=== PATIENT | female | born 1995 | race Caucasian/White ===

== ENCOUNTER → 2016-10-24 | Outpatient (REF) | payer MEDICAID ==
[~2016-10-24] MED LIST: AMOX125C PO; FLUTISP
== END ==
LOC: M LAB REF 13:15
PROVIDERS: ATTEND Specialist
DX: Z36 Encounter for antenatal screening of mother (principal)

== ENCOUNTER 2016-11-21 03:27 | Inpatient (IN) | payer MEDICAID, OTHER ==
[2016-11-21] VITALS (9 sets, daily range): BP systolic 109–126; BP diastolic 56–86
[~2016-11-21] VITALS: Ht 170.2 cm; Wt 61.0 kg
[2016-11-21] MEDS ORDERED: LR 1,000 ML IV SCH (06:53)
[2016-11-21] MEDS ORDERED: LACTATED RINGER'S 1000 ML IV STA (06:53)
[2016-11-21 07:18] LABS: MEAN CORPUSCULAR HEMOGLOBIN 28.5 pg (27.0-33.0); MEAN CORPUSCULAR HGB CONC 33.4 g/dl (32.0-36.5); MEAN CORPUSCULAR VOLUME 85.4 fl (80.0-96.0); RED CELL DISTRIBUTION WIDTH 14.5 % (11.5-14.5); WHITE BLOOD COUNT 11.9 K/mm3 (4.0-10.0)
[2016-11-21] MEDS ORDERED: OXYTOCIN 30 UNITS IN 0.9% NaCl 500ML IV BAG (J2590) As Ordered ONE (07:39)
[2016-11-21] MEDS ORDERED: OXYTOCIN DRIP 30 UNITS in APPROPRIATE DILUENT 1 EA IV SCH (08:01)
[2016-11-21] MEDS ORDERED: ANUSOL HC CREAM 30GM TOP PRN (08:15)
[2016-11-21] MEDS ORDERED: RHOGAM 300 MCG (1500 IU) INJ (J2790) IM SCH (08:15)
[2016-11-21] MEDS ORDERED: MEASLES,MUMPS,RUBELLA VACCINE INJ (MMR-II) (90707) SC SCH (08:15)
[2016-11-21] MEDS ORDERED: DIBUCAINE 1% OINTMENT 30GM TOP PRN (08:15)
[2016-11-21] MEDS ORDERED: MOM 30ML SUSPENSION UDC PO PRN (08:15)
[2016-11-21] MEDS ORDERED: ACETAMINOPHEN 500 MG TAB PO PRN (08:15)
[2016-11-21] MEDS ORDERED: METHYLERGONOVINE MALEATE 0.2 MG TAB PO PRN (08:15)
[2016-11-21] MEDS ORDERED: DOCUSATE SODIUM 100 MG CAP PO PRN (08:15)
[2016-11-21] MEDS: FERROUS SULFATE 325MG TAB PO SCH (10:42)
[2016-11-21] MEDS: PRENATAL VITAMIN TAB PO SCH (10:42)
--- NOTE | 2016-11-21 11:30 | HPE ---
DATE OF ADMISSION: 11/21/2016 21-year-old, 1, estimated date of delivery 11/16/2016, here at 40 weeks 5 days with reports of contractions all night. Reports bloody show. Denies loss of fluid. Fetus is active. Last normal menstrual period 01/30/2016 for LINDA of 11/05/2016. Sono at 8 weeks changed her date to 11/16/2016. Anatomy scan within normal limits. complicated by tobacco use. NO KNOWN DRUG ALLERGIES. Medical-surgical is noncontributory. Family is noncontributory. Social: Single. Father of the baby and family supportive. Reports tobacco use. Denies alcohol, drugs or abuse. OBJECTIVE: Prepregnancy weight 101, total weight gain 38 pounds. O+, antibody negative, rubella immune. VDRL, hepatitis B, hepatitis C, HIV, gonorrhea, Chlamydia all negative. 1-hour glucose 95. Anemia treated with iron supplement. Group B strep is negative. Vital signs are stable. Moderately uncomfortable. Heart rate is regular. Breathing with contractions. Abdomen is soft, gravid, longitudinal lie. Contractions 3-4 minutes apart times 60 seconds, moderate. heart 130, moderate variability with accelerations. Cervix is 7 cm, 100% effaced, -1 one station. Bulging bag of case. ASSESSMENT: Primipara at term, category 1 tracing, active labor. PLAN: Admit. Patient desires epidural. Anticipate normal spontaneous vaginal .
[2016-11-21] MEDS: IBUPROFEN 800 MG TAB PO PRN (13:02)
--- NOTE | 2016-11-21 18:57 | DN ---
DATE OF DELIVERY: 11/21/2016 Spontaneous rupture of membranes and meconium stained fluid 07:01. Fully dilated 07:29. Viable female delivered right occiput anterior (ASHWIN) at 07:45. Bulb suctioned on perineum. Spontaneous respirations. Transitioned on maternal abdomen. Cord doubly clamped and cut once pulsations ceased. Apgars eight and nine. Placenta Greene, intact with three-vessel cord at 07:52. Fundus firmed with massage and IV Pitocin bolus. Estimated blood loss 100 ml. Perineum intact. Left labial abrasion noted. No repair required. weight pending. Sponge, sharp and instrument count correct. Mom and baby doing well.
[2016-11-22 06:30] VITALS: BP 119/67
[2016-11-22] MEDS: PRENATAL VITAMIN TAB PO SCH (08:39)
[2016-11-22] MEDS: FERROUS SULFATE 325MG TAB PO SCH (08:39)
[2016-11-22] MEDS: IBUPROFEN 800 MG TAB PO PRN ×2 (10:08→17:22)
[2016-11-22 18:00] VITALS: BP 113/71
[2016-11-23 06:26] VITALS: BP 118/60
[2016-11-23] MEDS: FERROUS SULFATE 325MG TAB PO SCH (08:02)
[2016-11-23] MEDS: PRENATAL VITAMIN TAB PO SCH (08:02)
[2016-11-23] MEDS ORDERED: PRENTAB9 PO (14:18)
[2016-11-23] MEDS ORDERED: ACET50TA PO (14:18)
[2016-11-23] MEDS ORDERED: IBUP-1114 PO (14:20)
== END 2016-11-23 16:30 | disposition home or self-care (01) | DRG 560 ==
LOC: M LDO 03:27 → M LDI 06:53 → M OBS 10:55
PROVIDERS: ADMIT Advanced Practice Midwife; ATTEND Advanced Practice Midwife
PROC: 10E0XZZ Delivery of Products of Conception, External Approach (ICD-10-PCS; principal; 2016-11-21)
DX: O48.0 Post-term pregnancy (principal); D64.9 Anemia, unspecified; Z37.0 Single live birth; Z3A.40 40 weeks gestation of pregnancy; F17.200 Nicotine dependence, unspecified, uncomplicated; O99.334 Smoking (tobacco) complicating childbirth; O77.0 Labor and delivery complicated by meconium in amniotic fluid; O99.02 Anemia complicating childbirth

== ENCOUNTER → 2016-12-31 | Outpatient (CLI) | payer OTHER ==
[~2016-12-31] MED LIST changes: +ACET50TA PO; +IBUP-1114 PO; +PRENTAB9 PO
[2016-12-31 21:09] LABS: CONTROL LINE HCG INT CTR LINE PRESENT
== END ==
LOC: M SMT 14:52
PROVIDERS: ATTEND Advanced Practice Midwife
DX: N91.1 Secondary amenorrhea (principal)

== ENCOUNTER → 2017-01-15 | Outpatient (REF) | payer OTHER | LOC: M LAB REF 12:00 | PROVIDERS: ATTEND Advanced Practice Midwife | DX: Z11.3 Encounter for screening for infections with a predominantly sexual mode of transmission (principal) ==

== ENCOUNTER 2017-03-11 20:57 | Emergency (ER) | payer OTHER ==
[~2017-03-11] VITALS: Ht 170.2 cm; Wt 52.6 kg
[2017-03-11 20:58] VITALS: BP 119/71
== END 2017-03-11 23:28 | disposition left against medical advice (07) ==
LOC: M ED 21:48
DX: Z20.2 Contact with and (suspected) exposure to infections with a predominantly sexual mode of transmission (principal); Z53.21 Procedure and treatment not carried out due to patient leaving prior to being seen by health care provider

== ENCOUNTER → 2017-07-01 | Outpatient (CLI) | payer OTHER ==
--- NOTE | 2017-07-02 08:23 | REP ---
Clinical: Clinical: Dyspareunia pelvic pain . Technique: Transabdominal pelvic ultrasound followed by transvaginal examination for better evaluation of the endometrium and adnexa with color Doppler evaluation of the ovaries. Findings: Bladder is unremarkable and measures 7.0 x 5.2 x 3.6 cm . Normal anteverted uterus measures 8.1 x 3.4 x 4.2 cm . The endometrial complex measures 4.7 mm thickness. No discrete uterine or endometrial abnormalities are appreciated. IUD identified in satisfactory position. Bilateral ovaries are normal in appearance and vascularity without evidence for torsion. Right ovary measures 3.2 x 1.7 x 2.2 cm ; R I = 0.61 . Left ovary measures 2.7 x 1.5 x 2.0 cm ; R I = 0.52 . Small amount of free fluid in the pelvis nonspecific. Impression: 1. Normal pelvic ultrasound. IUD in satisfactory position. 2. Normal ovaries without torsion. Signed by Babatunde Burgess MD 07/02/2017 08:14 A
== END ==
LOC: M SMT 13:31
PROVIDERS: ATTEND Advanced Practice Midwife
DX: N94.12 Deep dyspareunia (principal)

== ENCOUNTER 2017-11-20 18:47 | Emergency (ER) | payer OTHER, SELFPAY ==
[2017-11-20 20:55] LABS: INFLUENZA A AMPLIFICATION NEGATIVE (NEGATIVE); INFLUENZA B AMPLIFICATION NEGATIVE (NEGATIVE)
[2017-11-20] MEDS: ONDANSETRON 4 MG ORAL DISINTEGRATING TAB (S0181) PO (21:00)
== END 2017-11-20 21:27 | disposition home or self-care (01) ==
LOC: M ED 18:47
DX: R10.9 Unspecified abdominal pain (principal); R11.2 Nausea with vomiting, unspecified; R19.7 Diarrhea, unspecified
CPT/HCPCS: 87502

== ENCOUNTER → 2018-01-04 | Outpatient (REF) | payer OTHER ==
[2018-01-04 15:21] LABS: CHLAMYDIA DNA AMPLIFICATION NEGATIVE (NEGATIVE); GC DNA AMPLIFICATION NEGATIVE (NEGATIVE)
== END ==
LOC: M LAB REF 12:57
DX: N94.12 Deep dyspareunia (principal)
CPT/HCPCS: 87591

== ENCOUNTER → 2018-03-31 | Outpatient (REF) | payer OTHER ==
[2018-04-03 14:28] LABS: HPV HYBRID CAPTURE II Positive (Negative)
== END ==
LOC: M LAB REF 18:17
DX: Z01.419 Encounter for gynecological examination (general) (routine) without abnormal findings (principal); Z11.51 Encounter for screening for human papillomavirus (HPV); R87.610 Atypical squamous cells of undetermined significance on cytologic smear of cervix (ASC-US)
CPT/HCPCS: 88142

== ENCOUNTER 2018-04-06 13:56 | Emergency (ER) | payer OTHER ==
[2018-04-06 14:56] LABS: BASO % 0.3 % (0.0-1.0); EOS # 0.2 10^3/uL (0.0-0.50); EOS % 3.1 % (0.0-3.0); HEMATOCRIT 37.9 % (36.0-47.0); HEMOGLOBIN 12.4 g/dl (12.0-15.5); LYMPH # 1.6 10^3/uL (1.5-6.5); LYMPH % 27.7 % (24.0-44.0); MEAN CORPUSCULAR HEMOGLOBIN 29.6 pg (27.0-33.0); MEAN CORPUSCULAR HGB CONC 32.7 g/dl (32.0-36.5); MEAN CORPUSCULAR VOLUME 90.5 fl (80.0-96.0); MONO # 0.6 10^3/uL (0.0-0.8); MONO % 10.5 % (0.0-5.0); NEUTROPHILS # 3.4 10^3/uL (1.8-7.7); NEUTROPHILS % 58.4 % (36.0-66.0); PLATELET COUNT, AUTOMATED 200 10^3/uL (150-450); RED BLOOD COUNT 4.19 10^6/uL (4.00-5.40); WHITE BLOOD COUNT 5.8 10^3/uL (4.0-10.0)
[2018-04-06 15:21] LABS: HCG, SERUM QUANTITATIVE 10 MIU/ML
[2018-04-06 15:54] LABS: KETONE, URINE AUTO RFX NEGATIVE (NEGATIVE); MUCUS, URINE RFX SMALL (NEGATIVE); NITRITE, URINE AUTO RFX NEGATIVE (NEGATIVE); RBC, URINE AUTO RFX TNTC /HPF (0-3); SQUAM EPITHELIAL CELL UR AURFX 25 /HPF (0-6)
[2018-04-06 15:55] LABS: LEUKOCYTE ESTERASE UR AUTO RFX 1+ (NEGATIVE); WBC, URINE AUTO RFX 110 /HPF (0-3)
[2018-04-06 17:39] LABS: CHLAMYDIA DNA AMPLIFICATION NEGATIVE (NEGATIVE); GC DNA AMPLIFICATION NEGATIVE (NEGATIVE)
== END 2018-04-06 17:29 | disposition home or self-care (01) ==
LOC: M ED 13:56
DX: O20.0 Threatened abortion (principal); Z87.891 Personal history of nicotine dependence; Z79.3 Long term (current) use of hormonal contraceptives; Z3A.01 Less than 8 weeks gestation of pregnancy
CPT/HCPCS: 76801

== ENCOUNTER → 2018-04-08 | Outpatient (CLI) | payer OTHER ==
[2018-04-08 16:16] LABS: HCG, SERUM QUANTITATIVE 4 MIU/ML
== END ==
LOC: M LAB 14:48
DX: O03.9 Complete or unspecified spontaneous abortion without complication (principal)
CPT/HCPCS: 84702

== ENCOUNTER → 2018-06-14 | Outpatient (REF) | payer OTHER ==
[2018-06-14 12:32] LABS: BASO % 0.6 % (0.0-1.0); EOS # 0.1 10^3/uL (0.0-0.50); EOS % 2.5 % (0.0-3.0); HEMOGLOBIN 12.7 g/dl (12.0-15.5); IMMATURE GRANULOCYTE % 0.2 % (0-3.0); LYMPH # 1.2 10^3/uL (1.5-6.5); LYMPH % 22.2 % (24.0-44.0); MEAN CORPUSCULAR HEMOGLOBIN 29.3 pg (27.0-33.0); MEAN CORPUSCULAR HGB CONC 32.6 g/dl (32.0-36.5); MEAN CORPUSCULAR VOLUME 89.9 fl (80.0-96.0); MONO # 0.5 10^3/uL (0.0-0.8); MONO % 10.2 % (0.0-5.0); NEUTROPHILS # 3.4 10^3/uL (1.8-7.7); NEUTROPHILS % 64.3 % (36.0-66.0); PLATELET COUNT, AUTOMATED 211 10^3/uL (150-450); RED BLOOD COUNT 4.34 10^6/uL (4.00-5.40); RED CELL DISTRIBUTION WIDTH 13.1 % (11.5-14.5); WHITE BLOOD COUNT 5.3 10^3/uL (4.0-10.0)
[2018-06-14 12:52] LABS: TOTAL 25(OH) VITAMIN D 34.9 NG/ML (30.0-100.0)
[2018-06-14 23:51] LABS: ALBUMIN 3.7 GM/DL (3.2-5.2); ALKALINE PHOSPHATASE 80 U/L (45-117); ALT/SGPT 14 U/L (12-78); ANION GAP 8 MEQ/L (8-16); AST/SGOT 13 U/L (7-37); BILIRUBIN,TOTAL 0.3 MG/DL (0.2-1.0); BLOOD UREA NITROGEN 9 MG/DL (7-18); CALCIUM LEVEL 8.6 MG/DL (8.5-10.1); CARBON DIOXIDE LEVEL 25 MEQ/L (21-32); CHLORIDE LEVEL 113 MEQ/L (98-107); CREATININE FOR GFR 0.64 MG/DL (0.55-1.30); GLOMERULAR FILTRATION RATE > 60.0 (>60); GLUCOSE, FASTING 84 MG/DL (70-100); HDL CHOLESTEROL 49 MG/DL (>40); LDL CHOLESTEROL 63 MG/DL (<100); POTASSIUM SERUM 4.6 MEQ/L (3.5-5.1); SODIUM LEVEL 146 MEQ/L (136-145); TOTAL PROTEIN 6.4 GM/DL (6.4-8.2); TRIGLYCERIDES LEVEL 39 MG/DL (<150)
[2018-06-15 00:15] LABS: CHOLESTEROL LEVEL 120 MG/DL (<200); CHOLESTEROL RISK RATIO 2.448 (<5); NON-HDL-C 71 MG/DL
[2018-06-15 00:16] LABS: ALBUMIN/GLOBULIN RATIO 1.37 (1.00-1.93)
[2018-06-16 19:22] LABS: HIV 1&2 SCREEN CENTAUR NEGATIVE (NEGATIVE)
== END ==
LOC: M LAB REF 12:19
DX: Z00.01 Encounter for general adult medical examination with abnormal findings (principal)

== ENCOUNTER 2018-07-05 19:11 | Emergency (ER) | payer OTHER ==
[2018-07-05 21:50] LABS: BASO % 0.3 % (0.0-1.0); EOS # 0.1 10^3/uL (0.0-0.50); EOS % 1.9 % (0.0-3.0); HEMATOCRIT 37.7 % (36.0-47.0); HEMOGLOBIN 12.5 g/dl (12.0-15.5); IMMATURE GRANULOCYTE % 0.2 % (0-3.0); LYMPH % 31.2 % (24.0-44.0); MEAN CORPUSCULAR HEMOGLOBIN 29.2 pg (27.0-33.0); MEAN CORPUSCULAR HGB CONC 33.2 g/dl (32.0-36.5); MEAN CORPUSCULAR VOLUME 88.1 fl (80.0-96.0); MONO # 0.5 10^3/uL (0.0-0.8); MONO % 7.6 % (0.0-5.0); NEUTROPHILS # 3.7 10^3/uL (1.8-7.7); NEUTROPHILS % 58.8 % (36.0-66.0); PLATELET COUNT, AUTOMATED 229 10^3/uL (150-450); RED BLOOD COUNT 4.28 10^6/uL (4.00-5.40); RED CELL DISTRIBUTION WIDTH 13.2 % (11.5-14.5); WHITE BLOOD COUNT 6.3 10^3/uL (4.0-10.0)
[2018-07-05] MEDS: METOCLOPRAMIDE INJ 10MG/2ML VIAL (J2765) IV (22:04)
[2018-07-05] MEDS: diphenhydrAMINE INJ 50MG/ML VIAL (J1200) IV (22:05)
[2018-07-05] MEDS: KETOROLAC 30 MG/ML VIAL (J1885) IV (22:05)
[2018-07-05 22:08] LABS: ANION GAP 3 MEQ/L (8-16); BLOOD UREA NITROGEN 11 MG/DL (7-18); C REACTIVE PROTEIN QUANTITATIV < 0.30 MG/DL (0.00-0.30); CALCIUM LEVEL 8.8 MG/DL (8.5-10.1); CARBON DIOXIDE LEVEL 28 MEQ/L (21-32); CHLORIDE LEVEL 110 MEQ/L (98-107); CREATININE FOR GFR 0.55 MG/DL (0.55-1.30); GLOMERULAR FILTRATION RATE > 60.0 (>60); GLUCOSE, FASTING 90 MG/DL (70-100); POTASSIUM SERUM 3.7 MEQ/L (3.5-5.1); SODIUM LEVEL 141 MEQ/L (136-145)
[2018-07-05 22:12] LABS: ERYTHROCYTE SEDIMENTATION RATE 5 mm/hr (0-20)
== END 2018-07-05 22:54 | disposition home or self-care (01) ==
LOC: M ED 19:11
DX: G43.909 Migraine, unspecified, not intractable, without status migrainosus (principal); R11.0 Nausea; Z87.59 Personal history of other complications of pregnancy, childbirth and the puerperium; N92.6 Irregular menstruation, unspecified
CPT/HCPCS: J1200

== ENCOUNTER → 2018-08-20 | Outpatient (CLI) | payer OTHER ==
[2018-08-20 13:58] LABS: BASO % 0.3 % (0.0-1.0); EOS # 0.1 10^3/uL (0.0-0.50); EOS % 1.1 % (0.0-3.0); HEMATOCRIT 38.1 % (36.0-47.0); HEMOGLOBIN 12.8 g/dl (12.0-15.5); IMMATURE GRANULOCYTE % 0.3 % (0-3.0); LYMPH # 1.8 10^3/uL (1.5-6.5); LYMPH % 24.1 % (24.0-44.0); MEAN CORPUSCULAR HEMOGLOBIN 29.6 pg (27.0-33.0); MEAN CORPUSCULAR HGB CONC 33.6 g/dl (32.0-36.5); MEAN CORPUSCULAR VOLUME 88.2 fl (80.0-96.0); MONO # 0.6 10^3/uL (0.0-0.8); MONO % 7.5 % (0.0-5.0); NEUTROPHILS % 66.7 % (36.0-66.0); PLATELET COUNT, AUTOMATED 242 10^3/uL (150-450); RED BLOOD COUNT 4.32 10^6/uL (4.00-5.40); WHITE BLOOD COUNT 7.5 10^3/uL (4.0-10.0)
[2018-08-20 15:14] LABS: HEPATITIS C VIRUS ABY INDEX 0.1 INDEX (<0.8)
[2018-08-20 15:14] LABS: HBsAg Prenatal NEGATIVE (NEGATIVE); HIV 1&2 SCREEN CENTAUR NEGATIVE (NEGATIVE); RUBELLA IgG QUALITATIVE IMMUNE (IMMUNE)
[2018-08-20 15:31] LABS: CHLAMYDIA DNA AMPLIFICATION NEGATIVE (NEGATIVE); GC DNA AMPLIFICATION NEGATIVE (NEGATIVE)
== END ==
LOC: M LAB 13:03
DX: Z34.81 Encounter for supervision of other normal pregnancy, first trimester (principal); Z3A.08 8 weeks gestation of pregnancy
CPT/HCPCS: 86762

== ENCOUNTER 2018-10-23 14:37 | Emergency (ER) | payer OTHER ==
[~2018-10-23] VITALS: Ht 170.2 cm; Wt 55.9 kg
[~2018-10-23 14:37] MED LIST changes: -ACET50TA PO; +MAPA500T2 PO; +ZOFR4TAB14 PO
[2018-10-23] MEDS ORDERED: BUT/APAP/CAF (14:47)
[2018-10-23] MEDS ORDERED: ACETAMINOPHEN 325 MG TAB PO ONE (16:15)
[2018-10-23] MEDS ORDERED: diphenhydrAMINE INJ 50MG/ML VIAL (J1200) IV ONE (16:15)
[2018-10-23] MEDS ORDERED: METOCLOPRAMIDE INJ 10MG/2ML VIAL (J2765) IV ONE (16:15)
[2018-10-23] MEDS ORDERED: NS 1,000 ML IV ONE (16:15)
[2018-10-23 16:35] LABS: BASO % 0.2 % (0.0-1.0); EOS # 0.1 10^3/uL (0.0-0.50); EOS % 0.6 % (0.0-3.0); HEMOGLOBIN 12.4 g/dl (12.0-15.5); LYMPH # 1.5 10^3/uL (1.5-6.5); LYMPH % 16.2 % (24.0-44.0); MEAN CORPUSCULAR HGB CONC 33.5 g/dl (32.0-36.5); MEAN CORPUSCULAR VOLUME 89.4 fl (80.0-96.0); MONO # 0.6 10^3/uL (0.0-0.8); MONO % 6.1 % (0.0-5.0); NEUTROPHILS # 7.2 10^3/uL (1.8-7.7); NEUTROPHILS % 76.7 % (36.0-66.0); PLATELET COUNT, AUTOMATED 219 10^3/uL (150-450); RED BLOOD COUNT 4.14 10^6/uL (4.00-5.40); WHITE BLOOD COUNT 9.4 10^3/uL (4.0-10.0)
[2018-10-23 16:59] LABS: APPEARANCE, URINE CLEAR (CLEAR); BACTERIA, URINE AUTO NEGATIVE (NEGATIVE); BILIRUBIN, URINE AUTO NEGATIVE (NEGATIVE); BLOOD, URINE BLOOD NEGATIVE (NEGATIVE); COLOR, URINE YELLOW (YELLOW); GLUCOSE, URINE (UA) AUTO NEGATIVE (NEGATIVE); KETONE, URINE AUTO 1+ mg/dL (NEGATIVE); LEUKOCYTE ESTERASE, URINE AUTO NEGATIVE (NEGATIVE); MUCUS, URINE SMALL (NEGATIVE); NITRITE, URINE AUTO NEGATIVE (NEGATIVE); PROTEIN, URINE AUTO NEGATIVE (NEGATIVE); RBC, URINE AUTO 3 /HPF (0-3); SPECIFIC GRAVITY URINE AUTO 1.011 (1.002-1.035); SQUAMOUS EPITHELIAL CELL UR AU 2 /HPF (0-6); UROBILINOGEN, URINE AUTO 0.2 mg/dL (0.0-2.0); WBC, URINE AUTO 2 /HPF (0-3)
[2018-10-23 17:11] LABS: BLOOD UREA NITROGEN 9 MG/DL (7-18); CALCIUM LEVEL 8.2 MG/DL (8.5-10.1); CARBON DIOXIDE LEVEL 24 MEQ/L (21-32); CHLORIDE LEVEL 106 MEQ/L (98-107); CREATININE FOR GFR 0.61 MG/DL (0.55-1.30); GLOMERULAR FILTRATION RATE > 60.0 (>60); GLUCOSE, FASTING 71 MG/DL (70-100); POTASSIUM SERUM 6.7 MEQ/L (3.5-5.1); SODIUM LEVEL 136 MEQ/L (136-145)
[2018-10-23 18:28] VITALS: BP 120/62
[2018-10-23] MEDS ORDERED: ACE65ERTAB PO (18:29)
[2018-10-23] MEDS ORDERED: METO10TA2 PO (18:29)
== END 2018-10-23 18:42 | disposition home or self-care (01) ==
LOC: M ED 14:37
DX: O99.352 Diseases of the nervous system complicating pregnancy, second trimester (principal); R51 Headache; O21.9 Vomiting of pregnancy, unspecified; O99.282 Endocrine, nutritional and metabolic diseases complicating pregnancy, second trimester; E87.5 Hyperkalemia; E83.51 Hypocalcemia; Z3A.18 18 weeks gestation of pregnancy
CPT/HCPCS: 80048; 81001; 85025; 85379; 96374; 96375; 99283; J1200; J2765

== ENCOUNTER → 2018-11-02 | Outpatient (CLI) | payer OTHER ==
[~2018-11-02] MED LIST changes: +ACE65ERTAB PO; +BUT/APAP/CAF; +METO10TA2 PO
--- NOTE | 2018-11-02 12:20 | REP ---
Clinical: Anatomical evaluation. Comparison: None . Findings: Examination demonstrates a single live intrauterine in variable presentation. motion is identified by technologist. Placenta is noted posterior and grade 1 without evidence for placenta previa or abruption. Amniotic fluid volume is normal. Cervix measures 5.2 cm in length and appears closed. No evidence for nuchal cord. Gestational age by LMP 20 weeks 2 days with LINDA 03/20/2019 . Gestational age by current measurements 19 weeks 4 days with LINDA 03/25/2019 . FHR equals 139 beats per minute. BPD 4.4 cm 19 weeks 2 days HC 16.6 cm 19 weeks 2 days AC 14.3 cm 19 weeks 5 days FL 3.2 cm 20 weeks 0 days HL 3.1 cm 20 weeks 2 days HC/AC ratio 1.16 Estimated weight 310 grams ( 28th percentile). Anatomical assessment demonstrates normal structures including cranium, choroid plexus, cavum, cerebellum/posterior fossa, facial profile, lungs, diaphragm, stomach, cord insertion/three-vessel cord, kidneys/bladder, spine, and extremities. Limited evaluation of the nose/lips and heart/ventricular outflow tracts noted. Impression: Single live intrauterine in variable presentation demonstrating appropriate interval growth. Anatomical limitations as described above warrant reevaluation and follow-up. No gross abnormality identified. Electronically Signed by Babatunde Burgess MD 11/02/2018 12:12 P
== END ==
LOC: M RAD 10:38
PROVIDERS: ATTEND Advanced Practice Midwife
DX: O32.8XX0 Maternal care for other malpresentation of fetus, not applicable or unspecified (principal); Z36.89 Encounter for other specified antenatal screening; Z3A.20 20 weeks gestation of pregnancy

== ENCOUNTER → 2018-11-16 | Outpatient (CLI) | payer OTHER ==
--- NOTE | 2018-11-16 12:14 | REP ---
Obstetric ultrasound for follow-up of anatomy: On the prior study dated 11/02/2018 the upper lip and four-chamber view of the heart were not optimally demonstrated. The remainder of the anatomy previously was unremarkable. On the study today there is again a single intrauterine gestation. Fetus is in a breech presentation. There is motion and cardiac activity. The heart rate is 141 beats per minute. The placenta is posterior and fundal without previa or abruptio. The placenta is grade 1 maturity. The amniotic fluid volume subjectively is normal. The cervix measures 3.9 cm length. Gestational age by the ultrasound today is 22 weeks 0 days/LINDA 03/22/2019. Gestational age by the first ultrasound is 21 weeks 4 days/LINDA 03/25/2019. Gestational age by LMP is 22 weeks 2 days/LINDA 03/20/2019. weight is 471 grams (1 pound, 0 ounces). This is the 37th percentile for 22 weeks 2 days. anatomy: The upper lip is adequately demonstrated and unremarkable. The four-chamber view of the heart is adequately demonstrated and unremarkable. The cardiac right and left ventricular outflow tracts are adequately demonstrated and unremarkable and unchanged. The spine is not adequately demonstrated on the study today, however, was adequately demonstrated on the previous study and unremarkable. The remainder of the anatomy is unremarkable today has previously. No anomalies are identified Electronically Signed by Jose Lucas MD 11/16/2018 12:06 P
== END ==
LOC: M RAD 10:32
PROVIDERS: ATTEND Advanced Practice Midwife
DX: Z34.82 Encounter for supervision of other normal pregnancy, second trimester (principal); Z3A.22 22 weeks gestation of pregnancy

== ENCOUNTER → 2018-12-30 | Outpatient (CLI) | payer OTHER ==
[2018-12-30 13:56] LABS: HEMOGLOBIN 10.2 g/dl (12.0-15.5); MEAN CORPUSCULAR HEMOGLOBIN 29.2 pg (27.0-33.0); MEAN CORPUSCULAR HGB CONC 31.9 g/dl (32.0-36.5); MEAN CORPUSCULAR VOLUME 91.7 fl (80.0-96.0); PLATELET COUNT, AUTOMATED 225 10^3/uL (150-450); RED BLOOD COUNT 3.49 10^6/uL (4.00-5.40); WHITE BLOOD COUNT 6.7 10^3/uL (4.0-10.0)
== END ==
LOC: M SMT 09:49
PROVIDERS: ATTEND Advanced Practice Midwife
DX: Z36.89 Encounter for other specified antenatal screening (principal); Z3A.00 Weeks of gestation of pregnancy not specified

== ENCOUNTER → 2019-02-24 | Outpatient (REF) | payer OTHER ==
[~2019-02-24] MED LIST changes: +FLUT1SPR2; -FLUTISP
== END ==
LOC: M LAB REF 13:17
PROVIDERS: ATTEND Advanced Practice Midwife
DX: Z34.83 Encounter for supervision of other normal pregnancy, third trimester (principal)

== ENCOUNTER 2019-03-18 08:01 | Inpatient (IN) | payer OTHER ==
[~2019-03-18] VITALS: Ht 170.2 cm; Wt 63.6 kg
[2019-03-18] VITALS (9 sets, daily range): BP systolic 112–125; BP diastolic 56–86
[2019-03-18] MEDS ORDERED: LACTATED RINGER'S 1000 ML IV STA (08:38)
--- NOTE | 2019-03-18 08:53 | HPEPDOC ---
Obstetrical History & Physical General Date of Admission Mar 18, 2019 at 08:35 History of Present Illness Chief Complaint: Contractions, term Information Provided By: Patient Age: 23 : 3 Term: 1 Pre-term: 0 Abortions: 1 Livin Dating Final EDC: Mar 20, 2019 Final EDC by: LMP EGA at Admission: 39 (+5) Antepartum Course Height (inches): 67 Pre- weight (lbs.): 121 Admission Weight (lbs.): 143 Past Medical History Past Obstetrical History : Past Obstetrical History: Primgravida (2017) Type of Delivery: Spontaneous Vaginal Del. 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 Past Medical History Medical History noncontributory Surgical History: Denies/None Family History Significant Family History: Diabetes, Hypertension, Other (thyroid) Social History Marital Status: Single Family situation: Spouse/partner home Psychosocial History: No pertinent psych hx * Smoker: former Smoker (quit with ) Alcohol: Denies Drugs: denies Abuse Violence Screening Have you been hit/kicked/slapp: No Have you been sexually assault: No Allergies Coded Allergies: No Known Allergies (Verified , 04/10/03) Medications No Active Prescriptions or Reported Meds Physical Examination Physical Examination GENERAL: Alert and oriented times three. BREAST: . ABDOMEN: Gravid and non-tender to touch. FETUS: Is vertex (VTX) by sterile vaginal examination (SVE), fetus is vertex (VTX) by Reymundo. HEART RATE: Regular rate and rhythm. LUNGS: Clear to auscultation (CTA). EXTREMITIES: No edema. No clonus. Deep tendon reflexes (DTRs) + 2. Pertinent Laboratoy Data Blood Type: O+ RBC Antibody Screen: Negative HIV: Negative Hepatitis B: Negative Hepatitis C: Negative Rapid Plasma Reagin: Nonreactive Rubella: Immune Chlamydia/Gonorrhea: Negative Group B Streptococcus: Negative Quad Screen Test: Declined Glucose Tolerance Test: 105 Anatomy Ultrasound Ultrasound Date: Nov 02, 2018 Placenta Location: Posterior Normal Anatomy: Yes Placenta Previa: No Estimated Weight (grams): 310 Other Ultrasounds 08/12/18 dating 8w0d 11/16/18 f/u anatomy 37%, normal anatomy Steroid Therapy Steroid Therapy: No Vaginal Examination Dilation: 3 cm (-4) Effacement: 90% Station: -1 Cervical Consistency: Soft Cervical Position: Middle Presentation: Cephalic presentation Assessment Heart Rate (FHR): 135 Variability: Minimal (to moderate) Accelerations: None Decelerations: None Tocometer Contractions: Yes Frequency: irregular, every 3-7 min. Duration: greater than 60 seconds Strength: palpated as moderate Assessment/Plan Assessment Shireen is a 23-year-old (G)3 para (P)1-0-1-1 at 39+5 weeks by 8-week ultrasound. Presents to Labor and Delivery (L&D) with reports of onset UC 0430 that woke her from sleep. States light bloody show. Denies LOF. Fetus is active. Plan Admit and orient. 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 Diet: Clear liquids. Group B Streptococcus (GBS) negative. Labs and intravenous (IV) per unit protocol. Counseled on Pitocin and induction of labor (IOL). Lactated Ringers (LR): Bolus 500 mL, then saline lock. Plans to labor ad elroy Anticipate normal spontaneous delivery (). C-S as appropriate. Nora López CNM Mar 18, 2019 08:53
[2019-03-18] MEDS: PRENATAL VITAMINS CHEWABLE TABLET PO SCH (09:00)
[2019-03-18 09:42] LABS: HEMATOCRIT 34.1 % (36.0-47.0); HEMOGLOBIN 10.6 g/dl (12.0-15.5); MEAN CORPUSCULAR HEMOGLOBIN 26.4 pg (27.0-33.0); MEAN CORPUSCULAR HGB CONC 31.1 g/dl (32.0-36.5); MEAN CORPUSCULAR VOLUME 84.8 fl (80.0-96.0); PLATELET COUNT, AUTOMATED 239 10^3/uL (150-450); RED BLOOD COUNT 4.02 10^6/uL (4.00-5.40); WHITE BLOOD COUNT 15.5 10^3/uL (4.0-10.0)
[2019-03-18] MEDS ORDERED: OXYTOCIN 30 UNITS IN 0.9% NaCl 500ML IV BAG (J2590) As Ordered ONE (10:09)
--- NOTE | 2019-03-18 11:13 | DNPDOC ---
[facility] Delivery Note Delivery Note DATE OF DELIVERY: March 18, 2019 PREDELIVERY DIAGNOSIS: 39-5/7 weeks' gestation and labor. POST DELIVERY DIAGNOSIS: Delivered. PROCEDURE: Spontaneous vaginal delivery. PROVIDER: Nora López CNM ANESTHESIA: None. ESTIMATED BLOOD LOSS: 300 mL. FINDINGS: 6 pound 13 ounce, 3090gm female , Score 8/9, no nuchal cord. DELIVERY SUMMARY: Patient is a [id number] 3 now para 2-0-1-2 who was admitted to labor and delivery for labor. Onset of UC 0430. She coped physiologically with her labor. AROM clear fluid 1033. FD 1044. Viable female child delivered without difficulty QUINCY @ 1047. Spontaneous respirations, transitioned on maternal abdomen. Cord doubly clamped and cut by patient once pulsations ceased. Apgars 8/9. Placenta osborne, intact with 3 v cord @ 1054. Fundus firmed with massage and IV pitocin bolus. EBL 300ml. Vagina, perineum and cervix inspected, small L labial abrasion noted otherwise intact. No suture required. wt 6#13, 3090gm. Parents are naming their daughter Damaris. Sponge, sharp and instrument count correct. Nora López CNM Mar 18, 2019 11:13
[2019-03-18] MEDS ORDERED: OXYTOCIN DRIP 30 UNITS in APPROPRIATE DILUENT 1 EA IV SCH (11:15)
[2019-03-18] MEDS ORDERED: ACETAMINOPHEN 500 MG TAB PO PRN (11:15)
[2019-03-18] MEDS ORDERED: ACETAMINOPHEN TAB 650MG DOSE (2X325MG) PO PRN (11:15)
[2019-03-18] MEDS ORDERED: ANUSOL HC CREAM 30GM TOP PRN (11:15)
[2019-03-18] MEDS ORDERED: RHOGAM 300 MCG (1500 IU) INJ (J2790) IM SCH (11:15)
[2019-03-18] MEDS ORDERED: DIBUCAINE 1% OINTMENT 30GM TOP PRN (11:15)
[2019-03-18] MEDS ORDERED: IBUPROFEN 600 MG TAB PO PRN (11:15)
[2019-03-18] MEDS ORDERED: MEASLES,MUMPS,RUBELLA VACCINE INJ (MMR-II) (90707) SC SCH (11:15)
[2019-03-18] MEDS ORDERED: METHYLERGONOVINE MALEATE 0.2 MG TAB PO PRN (11:15)
[2019-03-18] MEDS ORDERED: IBUPROFEN 800 MG TAB PO PRN (11:15)
[2019-03-18] MEDS ORDERED: DOCUSATE SODIUM 100 MG CAP PO PRN (11:15)
[2019-03-19 06:00] VITALS: BP 123/61
[2019-03-19] MEDS: PRENATAL VITAMINS CHEWABLE TABLET PO SCH (07:52)
[2019-03-19] MEDS ORDERED: ACET-683 PO (09:32)
[2019-03-19] MEDS ORDERED: IBUP80TA PO (09:32)
[2019-03-19] MEDS ORDERED: PRENCHW PO (09:33)
== END 2019-03-19 13:15 | disposition home or self-care (01) | DRG 560 ==
LOC: M LDO 08:01 → M LDI 08:35 → M OBS 13:21
PROVIDERS: ADMIT Advanced Practice Midwife; ATTEND Advanced Practice Midwife
PROC: 10E0XZZ Delivery of Products of Conception, External Approach (ICD-10-PCS; principal; 2019-03-18)
PROC: 10907ZC Drainage of Amniotic Fluid, Therapeutic from Products of Conception, Via Natural or Artificial Opening (ICD-10-PCS; 2019-03-18)
DX: O80 Encounter for full-term uncomplicated delivery (principal); Z3A.39 39 weeks gestation of pregnancy; Z37.0 Single live birth

== ENCOUNTER → 2019-05-10 | Outpatient (CLI) | payer OTHER ==
[~2019-05-10] MED LIST changes: +ACET-683 PO; +IBUP80TA PO; +PRENCHW PO
== END ==
LOC: M LAB 09:37
PROVIDERS: ATTEND Advanced Practice Midwife
DX: N91.0 Primary amenorrhea (principal)

== ENCOUNTER → 2019-05-12 | Outpatient (REF) | payer OTHER ==
[2019-05-12 17:16] LABS: CHLAMYDIA DNA AMPLIFICATION NEGATIVE (NEGATIVE); GC DNA AMPLIFICATION NEGATIVE (NEGATIVE)
== END ==
LOC: M LAB REF 13:15
PROVIDERS: ATTEND Advanced Practice Midwife
DX: Z11.3 Encounter for screening for infections with a predominantly sexual mode of transmission (principal)

== ENCOUNTER → 2019-06-09 | Outpatient (REF) | payer OTHER | LOC: M LAB REF 12:58 | PROVIDERS: ATTEND Advanced Practice Midwife | DX: Z12.4 Encounter for screening for malignant neoplasm of cervix (principal) ==

== ENCOUNTER → 2019-06-23 | Outpatient (CLI) | payer OTHER ==
[2019-06-23 12:05] LABS: HEMATOCRIT 36.3 % (36.0-47.0); HEMOGLOBIN 11.3 g/dl (12.0-15.5); MEAN CORPUSCULAR HEMOGLOBIN 26.2 pg (27.0-33.0); MEAN CORPUSCULAR HGB CONC 31.1 g/dl (32.0-36.5); MEAN CORPUSCULAR VOLUME 84.2 fl (80.0-96.0); PLATELET COUNT, AUTOMATED 250 10^3/uL (150-450); RED BLOOD COUNT 4.31 10^6/uL (4.00-5.40); WHITE BLOOD COUNT 4.2 10^3/uL (4.0-10.0)
[2019-06-23 12:42] LABS: ALBUMIN 3.9 GM/DL (3.2-5.2); ALT/SGPT 23 U/L (12-78); BILIRUBIN,TOTAL 0.5 MG/DL (0.2-1.0); BLOOD UREA NITROGEN 12 MG/DL (7-18); CALCIUM LEVEL 8.9 MG/DL (8.5-10.1); CARBON DIOXIDE LEVEL 25 MEQ/L (21-32); CHLORIDE LEVEL 106 MEQ/L (98-107); CHOLESTEROL LEVEL 127 MG/DL (<200); CHOLESTEROL RISK RATIO 2.822 (<5); GLOMERULAR FILTRATION RATE > 60.0 (>60); GLUCOSE, FASTING 78 MG/DL (70-100); HDL CHOLESTEROL 45 MG/DL (>40); IRON (FE) 37 UG/DL (50-170); LDL CHOLESTEROL 69 MG/DL (<100); NON-HDL-C 82 MG/DL; PERCENT SATURATION 9.5 % (13.2-45.0); POTASSIUM SERUM 3.9 MEQ/L (3.5-5.1); SODIUM LEVEL 142 MEQ/L (136-145); THYROXINE (T4) 9.4 UG/DL (4.5-12.0); TOTAL IRON BINDING CAPACITY 391 UG/DL (250-450); TOTAL PROTEIN 6.5 GM/DL (6.4-8.2); TRIGLYCERIDES LEVEL 63 MG/DL (<150)
[2019-06-23 12:43] LABS: TOTAL 25(OH) VITAMIN D 30.1 NG/ML (30.0-100.0); TOTAL T3 120.5 NG/DL (60.0-181.0)
--- NOTE | 2019-06-23 14:55 | ECGEPIP ---
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
[2019-06-23 15:30] LABS: HEMOGLOBIN A1c 5.3 %
--- NOTE | 2019-06-24 01:56 | REP ---
Clinical: Fatigue Comparison: 07/11/2015 . Technique: PA and lateral. Findings: The mediastinum and cardiac silhouette are normal. The lung shaffer are clear and without acute consolidation, effusion, or pneumothorax. The skeletal structures are intact and normal. Impression: 1. No acute cardiopulmonary process. Electronically Signed by Babatunde Burgess MD 06/24/2019 01:48 A
== END ==
LOC: M LAB 10:32
PROVIDERS: ATTEND Family Medicine
DX: E03.9 Hypothyroidism, unspecified (principal); R53.83 Other fatigue

== ENCOUNTER → 2019-08-19 | Outpatient (REF) | payer OTHER | LOC: M LAB REF 12:17 | PROVIDERS: ATTEND Physician Assistant | DX: J02.9 Acute pharyngitis, unspecified (principal) ==

== ENCOUNTER → 2019-11-17 | Outpatient (CLI) | payer OTHER ==
[2019-11-17 10:02] LABS: HEMATOCRIT 39.4 % (36.0-47.0); MEAN CORPUSCULAR HEMOGLOBIN 29.4 pg (27.0-33.0); MEAN CORPUSCULAR VOLUME 89.1 fl (80.0-96.0); PLATELET COUNT, AUTOMATED 241 10^3/uL (150-450); RED BLOOD COUNT 4.42 10^6/uL (4.00-5.40); WHITE BLOOD COUNT 4.7 10^3/uL (4.0-10.0)
[2019-11-17 10:36] LABS: ALBUMIN 3.8 GM/DL (3.2-5.2); ALT/SGPT 18 U/L (12-78); BILIRUBIN,TOTAL 0.5 MG/DL (0.2-1.0); BLOOD UREA NITROGEN 12 MG/DL (7-18); CALCIUM LEVEL 8.9 MG/DL (8.5-10.1); CARBON DIOXIDE LEVEL 30 MEQ/L (21-32); CHLORIDE LEVEL 106 MEQ/L (98-107); CHOLESTEROL LEVEL 123 MG/DL (<200); CHOLESTEROL RISK RATIO 3.324 (<5); CREATININE FOR GFR 0.65 MG/DL (0.55-1.30); GLOMERULAR FILTRATION RATE > 60.0 (>60); GLUCOSE, FASTING 91 MG/DL (70-100); HDL CHOLESTEROL 37 MG/DL (>40); IRON (FE) 87 UG/DL (50-170); LDL CHOLESTEROL 76 MG/DL (<100); NON-HDL-C 86 MG/DL; PERCENT SATURATION 23.6 % (13.2-45.0); POTASSIUM SERUM 4.3 MEQ/L (3.5-5.1); SODIUM LEVEL 141 MEQ/L (136-145); TOTAL IRON BINDING CAPACITY 369 UG/DL (250-450); TOTAL PROTEIN 6.6 GM/DL (6.4-8.2); TRIGLYCERIDES LEVEL 48 MG/DL (<150)
== END ==
LOC: M LAB 09:06
PROVIDERS: ATTEND Family Medicine
DX: D64.9 Anemia, unspecified (principal); R53.83 Other fatigue; E03.9 Hypothyroidism, unspecified

== ENCOUNTER → 2019-12-19 | Outpatient (REF) | payer OTHER | LOC: M LAB REF 21:28 | PROVIDERS: ATTEND Physician Assistant Medical | DX: J02.9 Acute pharyngitis, unspecified (principal) ==

== ENCOUNTER 2020-03-16 15:24 | Emergency (ER) | payer OTHER ==
[~2020-03-16] VITALS: Ht 170.2 cm; Wt 66.1 kg
[2020-03-16 16:48] LABS: BASO % 0.5 % (0.0-1.0); EOS # 0.2 10^3/uL (0.0-0.5); EOS % 2.7 % (0.0-3.0); HEMATOCRIT 41.4 % (36.0-47.0); HEMOGLOBIN 13.5 g/dl (12.0-15.5); LYMPH # 1.4 10^3/uL (1.5-5.0); LYMPH % 24.6 % (24.0-44.0); MEAN CORPUSCULAR HEMOGLOBIN 29.2 pg (27.0-33.0); MEAN CORPUSCULAR HGB CONC 32.6 g/dl (32.0-36.5); MEAN CORPUSCULAR VOLUME 89.6 fl (80.0-96.0); MONO # 0.5 10^3/uL (0.0-0.8); MONO % 9.2 % (0.0-5.0); NEUTROPHILS # 3.7 10^3/uL (1.5-8.5); NEUTROPHILS % 62.8 % (36.0-66.0); PLATELET COUNT, AUTOMATED 210 10^3/uL (150-450); RED BLOOD COUNT 4.62 10^6/uL (4.00-5.40); WHITE BLOOD COUNT 5.9 10^3/uL (4.0-10.0)
[2020-03-16] MEDS ORDERED: ISOVUE-370 76% 100ML VIAL As Ordered ONE (16:48)
[2020-03-16 17:14] LABS: ALBUMIN 3.8 GM/DL (3.2-5.2); BILIRUBIN,DIRECT 0.1 MG/DL (0.0-0.2); BILIRUBIN,TOTAL 0.3 MG/DL (0.2-1.0); TOTAL PROTEIN 6.8 GM/DL (6.4-8.2)
--- NOTE | 2020-03-16 17:17 | REPVR ---
PROCEDURE INFORMATION: Exam: CT Abdomen And Pelvis With Contrast Exam date and time: 03/16/2020 4:54 PM Age: 24 years old Clinical indication: Abdominal pain; Localized; Right lower quadrant (rlq); Additional info: Rlq pain with nause R/O appendicitis TECHNIQUE: Imaging protocol: Computed tomography of the abdomen and pelvis with intravenous contrast. Radiation optimization: All CT scans at this facility use at least one of these dose optimization techniques: automated exposure control; mA and/or kV adjustment per patient size (includes targeted exams where dose is matched to clinical indication); or iterative reconstruction. Contrast material: ISOVUE 370; Contrast volume: 100 ml; Contrast route: IV; COMPARISON: US PELVIC NON-OB COMPLETE 01/06/2018 12:48 PM FINDINGS: Liver: Unremarkable. Gallbladder and bile ducts: Unremarkable. No ductal dilation. Pancreas: Unremarkable. No ductal dilation. Spleen: Unremarkable. Adrenals: Unremarkable. Kidneys and ureters: No hydronephrosis or stones. Stomach and bowel: Stomach is unremarkable. No small bowel obstruction. Large bowel is unremarkable. Appendix: The appendix is normal. Intraperitoneal space: No pneumoperitoneum. No significant fluid collection. Vasculature: Unremarkable. Lymph nodes: No enlarged lymph nodes. Bladder: Unremarkable. Reproductive: IUD in place within the uterus. 2.7 cm fluid density cyst in the left ovary Bones/joints: No acute osseus lesion or fracture. Soft tissues: Unremarkable. IMPRESSION: 1. 2.7 cm fluid density cyst in the left ovary. Consider further evaluation with pelvic ultrasound, if clinically indicated. 2. No evidence of acute appendicitis. Electronically signed by: Yaw Caceres On 03/16/2020 17:17:30 PM
[2020-03-16 17:55] VITALS: BP 109/68
--- NOTE | 2020-03-16 18:06 | REPVR ---
PROCEDURE INFORMATION: Exam: US Pelvis Complete, Transabdominal and US Pelvis, Transvaginal and US Duplex Artery and Vein, Ovaries, Complete Exam date and time: 03/16/2020 5:51 PM Age: 24 years old Clinical indication: Other: Right back pain; Additional info: Large L ovarian cyst, R/O torsion TECHNIQUE: Imaging protocol: Real-time transabdominal and transvaginal pelvic ultrasound (complete) with image documentation. Transvaginal imaging was used for better evaluation of the endometrium and adnexa. Real-time duplex ultrasound scan of the arterial and venous flow of the ovaries with B-mode, color Doppler flow and spectral waveform analysis. COMPARISON: US PELVIC NON-OB COMPLETE 01/06/2018 12:48 PM FINDINGS: Uterus/cervix: Uterus measures 8.2 x 4.5 x 5.[address] within the endometrial cavity. Normal echogenicity. Endometrium measures 0.4 cm in thickness. Normal arterial waveforms on duplex color spectral Doppler analysis. Right adnexa: Right ovary measures 2.4 x 1.7 x 2.3 cm. Approximately 2.9 cm anechoic left ovarian cyst. Left adnexa: Left ovary measures 3.3 x 3.3 x 3.3 cm. Normal arterial waveforms on duplex color spectral Doppler analysis. Free fluid: None. Bladder: Urinary bladder is unremarkable. IMPRESSION: 1. Approximately 2.9 cm anechoic left ovarian cyst. 2. No evidence of ovarian torsion. 3. IUD in satisfactory position within the endometrial cavity. Electronically signed by: Yaw Caceres On 03/16/2020 18:06:03 PM
== END 2020-03-16 18:33 | disposition home or self-care (01) ==
LOC: M ED 15:24
DX: N83.202 Unspecified ovarian cyst, left side (principal); Z97.5 Presence of (intrauterine) contraceptive device
CPT/HCPCS: 36415; 74177; 76830; 76856; 80047; 80076; 81001; 83690; 84702; 85025; 87086; 93976; 99284; Q9967

== ENCOUNTER → 2020-05-14 | Outpatient (CLI) | payer OTHER ==
[~2020-05-14] MED LIST changes: +FERR325T18 PO; +HYDR-3363 PO; +MACR100C43 PO; +MIRA1POW3 PO; +MULTTAB20 PO; +PARO20TA3 PO; +TYLETAB14 PO
--- NOTE | 2020-06-28 09:38 | REP ---
PELVIC SONOGRAPHY This report is delayed due to a malware attack at this facility. COMPARISON: Pelvic sonography and pelvic CT imaging is from 03/16/2020. HISTORY: Ovarian cyst on the left. SONOGRAPHIC FINDINGS: Transabdominal and transvaginal scanning are included. Uterine dimensions are 8.8 x 3.9 x 5.3 cm. Endometrial echo is 0.8 cm thick. Urinary bladder varghese are smooth. No focal uterine mass is seen. Right ovarian dimensions of 3.0 x 1.6 x 2.7 cm. There are follicle cysts in the right ovary. None are dominant. Doppler flow is present in the right ovary with resistive index measured at 0.51. Overall dimensions of the left ovary are 2.4 x 1.9 x 1.6 cm. There is a 1.8 cm follicle cyst in the left ovary. No larger cyst is seen. Doppler flow is present in the left ovary with resistive index 0.64. IMPRESSION: Unremarkable pelvic sonography. No significant cyst seen. MTDD
== END ==
LOC: M WHC 07:07
PROVIDERS: ATTEND Obstetrics & Gynecology
DX: N83.01 Follicular cyst of right ovary (principal)

== ENCOUNTER 2020-07-01 15:24 | Emergency (ER) | payer OTHER ==
[~2020-07-01] VITALS: Ht 170.2 cm; Wt 66.8 kg
[~2020-07-01 15:24] MED LIST changes: -FERR325T18 PO; -HYDR-3363 PO; -MACR100C43 PO; -MIRA1POW3 PO; -MULTTAB20 PO; -PARO20TA3 PO; -TYLETAB14 PO
[2020-07-01] MEDS ORDERED: ACETAMINOPHEN 325 MG TAB PO ONE (16:15)
[2020-07-01 16:36] VITALS: BP 115/68
== END 2020-07-01 16:56 | disposition home or self-care (01) ==
LOC: M ED 15:24
DX: O9A.211 Injury, poisoning and certain other consequences of external causes complicating pregnancy, first trimester (principal); S39.92XA Unspecified injury of lower back, initial encounter; Y99.0 Civilian activity done for income or pay; Y92.9 Unspecified place or not applicable; Y93.9 Activity, unspecified; Z3A.01 Less than 8 weeks gestation of pregnancy

== ENCOUNTER 2020-07-06 20:32 | Emergency (ER) | payer OTHER ==
[~2020-07-06] VITALS: Ht 170.2 cm; Wt 65.8 kg
[2020-07-06] MEDS ORDERED: ACET-683 PO (20:37)
[2020-07-06] MEDS ORDERED: TYLETAB14 PO (21:21)
[2020-07-06 21:30] VITALS: BP 126/81
[2020-07-06] MEDS ORDERED: MIRA1POW3 PO (23:14)
== END 2020-07-06 21:28 | disposition home or self-care (01) ==
LOC: M ED 20:32
DX: O26.899 Other specified pregnancy related conditions, unspecified trimester (principal); M62.830 Muscle spasm of back; O9A.211 Injury, poisoning and certain other consequences of external causes complicating pregnancy, first trimester; S39.92XD Unspecified injury of lower back, subsequent encounter; W01.0XXD Fall on same level from slipping, tripping and stumbling without subsequent striking against object, subsequent encounter; Y92.9 Unspecified place or not applicable; Y93.9 Activity, unspecified; Y99.0 Civilian activity done for income or pay; Z3A.01 Less than 8 weeks gestation of pregnancy; Z79.899 Other long term (current) drug therapy

== ENCOUNTER 2020-07-23 15:58 | Emergency (ER) | payer OTHER ==
[~2020-07-23] VITALS: Ht 17.8 cm; Wt 66.3 kg
[~2020-07-23 15:58] MED LIST changes: +MIRA1POW3 PO; +TYLETAB14 PO
[2020-07-23] MEDS ORDERED: MULTTAB20 PO (16:06)
[2020-07-23 16:56] LABS: BASO % 0.4 % (0.0-1.0); EOS # 0.1 10^3/uL (0.0-0.5); EOS % 1.7 % (0.0-3.0); HEMATOCRIT 36.9 % (36.0-47.0); HEMOGLOBIN 12.1 g/dl (12.0-15.5); LYMPH # 1.8 10^3/uL (1.5-5.0); LYMPH % 24.1 % (24.0-44.0); MEAN CORPUSCULAR HGB CONC 32.8 g/dl (32.0-36.5); MEAN CORPUSCULAR VOLUME 88.5 fl (80.0-96.0); MONO # 0.5 10^3/uL (0.0-0.8); MONO % 6.9 % (0.0-5.0); NEUTROPHILS # 4.8 10^3/uL (1.5-8.5); NEUTROPHILS % 66.6 % (36.0-66.0); PLATELET COUNT, AUTOMATED 215 10^3/uL (150-450); RED BLOOD COUNT 4.17 10^6/uL (4.00-5.40); WHITE BLOOD COUNT 7.3 10^3/uL (4.0-10.0)
--- NOTE | 2020-07-23 17:50 | REPVR ---
PROCEDURE INFORMATION: Exam: US First Trimester, Transabdominal Exam date and time: 07/23/2020 4:50 PM Age: 25 years old Clinical indication: Lmp or gestational age (in weeks): 7; Antepartum complications; Bleeding; ; Additional info: Pelvic cramping, vag spotting, 7.5wks by date TECHNIQUE: Imaging protocol: Real-time transabdominal obstetrical ultrasound of the maternal pelvis and a first trimester , less than 14 weeks 0 days, with image documentation. COMPARISON: No relevant prior studies available. FINDINGS: Gestation: An intrauterine gestational sac is present. Within the gestational sac there is a pole estimated at 7 weeks 4 days utilizing crown-rump length. This is very early in gestation and all parameters regarding the fetus cannot be assessed. Therefore a complete survey should be performed at 18-20 weeks gestation for complete evaluation and to exclude any possibility of abnormality. A well-formed yolk sac is identified. There is good decidual reaction surrounding the gestational sac. However there is an oval hypoechoic area at the upper margin of the gestational sac measuring 2.2 cm by 1.9 cm x 1.4 cm and probably representing the area of implantation bleed. heart rate is 142 bpm. Right adnexa: The right ovary measures 2.5 cm in length by 2 cm in thickness there is vascular flow of the right ovary. Left adnexa: The left ovary measures 2.5 cm in length by 1.5 cm in thickness and there is vascular flow of the left ovary. Intraperitoneal space: There is no evidence of free fluid in the cul-de-sac. Urinary bladder: Normal appearing urinary bladder. IMPRESSION: Intrauterine gestational sac with a pole estimated at 7 weeks 4 days. This is very early in gestation and all parameters cannot be assessed, therefore a the complete survey should be performed at 18-20 weeks gestation to exclude any abnormality. 2.2 x 1.4 oval hypoechoic area probable implantation bleed at the superior aspect of the intrauterine gestational sac. Electronically signed by: Bonifacio Flor On 07/23/2020 17:50:01 PM
[2020-07-23] MEDS ORDERED: MACR100C43 PO (18:43)
[2020-07-23] MEDS ORDERED: NITROFURANTOIN (MACROBID) 100 MG CAP PO ONE (18:45)
[2020-07-23 18:51] VITALS: BP 121/69
== END 2020-07-23 18:59 | disposition home or self-care (01) ==
LOC: M ED 15:58
DX: O41.8X90 Other specified disorders of amniotic fluid and membranes, unspecified trimester, not applicable or unspecified (principal); O46.91 Antepartum hemorrhage, unspecified, first trimester; O23.41 Unspecified infection of urinary tract in pregnancy, first trimester; Z3A.01 Less than 8 weeks gestation of pregnancy

== ENCOUNTER 2020-08-02 14:34 | Emergency (ER) | payer OTHER ==
[~2020-08-02] VITALS: Ht 170.2 cm; Wt 65.5 kg
[~2020-08-02 14:34] MED LIST changes: +MACR100C43 PO; +MULTTAB20 PO
[2020-08-02] MEDS ORDERED: PARO20TA3 PO (14:43)
[2020-08-02] MEDS ORDERED: FERR325T18 PO (14:43)
[2020-08-02] MEDS ORDERED: HYDR-3363 PO (16:13)
[2020-08-02 16:35] VITALS: BP 115/56
--- NOTE | 2020-08-03 07:23 | ECGEPIP ---
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 Order Number: [id number] Reading MD: Siddhartha Duran Measurements Intervals [place] Rate: 71 P: 55 [place]: 167 QRS: 78 QRSD: 97 T: 36 QT: 344 QTc: 375 Interpretive Statements SINUS RHYTHM WITH SINUS ARRHYTHMIA Rate increased from tracing done 06-23-19 Electronically Signed on 08-03-2020 7:23:23 EDT by Siddhartha Duran
== END 2020-08-02 16:36 | disposition home or self-care (01) ==
LOC: M ED 14:34
DX: O99.341 Other mental disorders complicating pregnancy, first trimester (principal); F41.0 Panic disorder [episodic paroxysmal anxiety]; Z3A.09 9 weeks gestation of pregnancy; Z79.899 Other long term (current) drug therapy

== ENCOUNTER → 2020-08-03 | Outpatient (REF) | payer OTHER ==
[~2020-08-03] MED LIST changes: +FERR325T18 PO; +HYDR-3363 PO; +PARO20TA3 PO
[2020-08-03 14:01] LABS: HEMATOCRIT 39.1 % (36.0-47.0); HEMOGLOBIN 12.4 g/dl (12.0-15.5); MEAN CORPUSCULAR HEMOGLOBIN 28.4 pg (27.0-33.0); MEAN CORPUSCULAR HGB CONC 31.7 g/dl (32.0-36.5); MEAN CORPUSCULAR VOLUME 89.7 fl (80.0-96.0); PLATELET COUNT, AUTOMATED 208 10^3/uL (150-450); RED BLOOD COUNT 4.36 10^6/uL (4.00-5.40); WHITE BLOOD COUNT 4.9 10^3/uL (4.0-10.0)
[2020-08-03 15:16] LABS: HEPATITIS C VIRUS ABY INDEX 0.1 INDEX (<0.8); HIV 1&2 SCREEN CENTAUR NEGATIVE (NEGATIVE)
== END ==
LOC: M PLALAB 11:24
PROVIDERS: ATTEND Advanced Practice Midwife
DX: Z34.91 Encounter for supervision of normal pregnancy, unspecified, first trimester (principal); Z3A.00 Weeks of gestation of pregnancy not specified

== ENCOUNTER 2020-08-27 21:07 | Emergency (ER) | payer OTHER ==
[~2020-08-27] VITALS: Ht 170.2 cm; Wt 65.4 kg
[2020-08-27 22:15] VITALS: BP 118/59
[2020-08-27 22:24] LABS: BASO % 0.4 % (0.0-1.0); EOS # 0.1 10^3/uL (0.0-0.5); HEMATOCRIT 35.2 % (36.0-47.0); HEMOGLOBIN 11.5 g/dl (12.0-15.5); LYMPH % 28.7 % (24.0-44.0); MEAN CORPUSCULAR HGB CONC 32.7 g/dl (32.0-36.5); MEAN CORPUSCULAR VOLUME 85.6 fl (80.0-96.0); MONO # 0.6 10^3/uL (0.0-0.8); MONO % 8.5 % (0.0-5.0); NEUTROPHILS # 4.2 10^3/uL (1.5-8.5); NEUTROPHILS % 60.3 % (36.0-66.0); PLATELET COUNT, AUTOMATED 207 10^3/uL (150-450); RED BLOOD COUNT 4.11 10^6/uL (4.00-5.40); WHITE BLOOD COUNT 6.9 10^3/uL (4.0-10.0)
[2020-08-27 22:31] LABS: AMORPHOUS SEDIMENT SMALL (NEGATIVE); APPEARANCE, URINE CLEAR (CLEAR); BACTERIA, URINE AUTO NEGATIVE (NEGATIVE); BILIRUBIN, URINE AUTO NEGATIVE (NEGATIVE); BLOOD, URINE BLOOD NEGATIVE (NEGATIVE); COLOR, URINE STRAW (YELLOW); GLUCOSE, URINE (UA) AUTO NEGATIVE (NEGATIVE); KETONE, URINE AUTO NEGATIVE (NEGATIVE); LEUKOCYTE ESTERASE, URINE AUTO TRACE (NEGATIVE); NITRITE, URINE AUTO NEGATIVE (NEGATIVE); PROTEIN, URINE AUTO NEGATIVE (NEGATIVE); RBC, URINE AUTO 0 /HPF (0-3); SPECIFIC GRAVITY URINE AUTO 1.009 (1.002-1.035); SQUAMOUS EPITHELIAL CELL UR AU 1 /HPF (0-6); UROBILINOGEN, URINE AUTO 0.2 mg/dL (0.0-2.0); WBC, URINE AUTO 2 /HPF (0-3)
[2020-08-27 22:46] LABS: ALBUMIN 3.3 GM/DL (3.2-5.2); ALT/SGPT 17 U/L (12-78); BILIRUBIN,DIRECT < 0.1 MG/DL (0.0-0.2); BILIRUBIN,TOTAL 0.1 MG/DL (0.2-1.0); BLOOD UREA NITROGEN 10 MG/DL (7-18); CALCIUM LEVEL 8.7 MG/DL (8.5-10.1); CARBON DIOXIDE LEVEL 22 MEQ/L (21-32); CHLORIDE LEVEL 109 MEQ/L (98-107); CREATININE FOR GFR 0.48 MG/DL (0.55-1.30); GLOMERULAR FILTRATION RATE > 60.0 (>60); GLUCOSE, FASTING 84 MG/DL (70-100); HCG, SERUM QUANTITATIVE 52591 MIU/ML; POTASSIUM SERUM 3.7 MEQ/L (3.5-5.1); SODIUM LEVEL 139 MEQ/L (136-145); TOTAL PROTEIN 6.3 GM/DL (6.4-8.2)
--- NOTE | 2020-08-27 23:12 | REPVR ---
PROCEDURE INFORMATION: Exam: US First Trimester, Transabdominal Exam date and time: 08/27/2020 10:52 PM Age: 25 years old Clinical indication: Lmp or gestational age (in weeks): 05/29/20; Antepartum complications; Bleeding; ; Additional info: Vaginal bleeding TECHNIQUE: Imaging protocol: Real-time transabdominal obstetrical ultrasound of the maternal pelvis and a first trimester , less than 14 weeks 0 days, with image documentation. COMPARISON: 1ST TRIMESTER US 07/23/2020 4:50 PM FINDINGS: Gestation: Single intrauterine fetus. Embryonic/ heart rate: heartbeat of 160 bpm. Placenta: Anterior placenta. Amniotic fluid: Amniotic fluid is normal for gestational age. BIOMETRY: [place]-Rump length: The crown-rump length measures 6.5 cm suggesting an age of 12 weeks 6 days. The EDC is 03/05/2021. MATERNAL: Uterus: Unremarkable. Right adnexa: The right ovary measures 2.6 x 1.8 x 3.1 cm with arterial and venous blood flow. Left adnexa: The left ovary measures 2.3 x 3.2 x 1.7 cm and demonstrates arterial and venous blood flow. Intraperitoneal space: No intraperitoneal free fluid. IMPRESSION: Single live intrauterine fetus with an estimated age of 12 weeks 6 days. The EDC is 03/05/2021 with normal interval growth since 07/23/2020. Electronically signed by: Robert Mike On 08/27/2020 23:12:33 PM
== END 2020-08-28 00:38 | disposition home or self-care (01) ==
LOC: M ED 21:07
DX: O20.0 Threatened abortion (principal); Z79.899 Other long term (current) drug therapy

== ENCOUNTER → 2020-09-04 | Outpatient (REF) | payer OTHER | LOC: M PLALAB 11:25 | PROVIDERS: ATTEND Obstetrics & Gynecology | DX: O99.342 Other mental disorders complicating pregnancy, second trimester (principal); F41.9 Anxiety disorder, unspecified; Z3A.14 14 weeks gestation of pregnancy; Z53.9 Procedure and treatment not carried out, unspecified reason ==

== ENCOUNTER → 2020-10-02 | Outpatient (CLI) | payer OTHER ==
--- NOTE | 2020-10-02 15:00 | REP ---
INDICATION: ANATOMY COMPARISON: 08/27/2020 TECHNIQUE: Transabdominal obstetrical ultrasound with color Doppler evaluation. FINDINGS: Examination demonstrates a single live intrauterine in transverse (head to maternal left) presentation. motion is identified by technologist. Placenta is noted anterior and grade 0 without evidence for placenta previa or abruption. Amniotic fluid volume is normal. Cervix measures 3.2 cm in length and appears closed.. Gestational age by LMP 18 weeks 0 days with LINDA 03/05/2021. Gestational age by current measurements 16 weeks 6 days with LINDA 03/13/2021. FHR equals 140 beats per minute. BPD: 3.6 cm 17 weeks 0 days HC: 13.4 cm 16 weeks 6 days AC: 11.0 cm 16 weeks 6 days FL: 2.3 cm 16 weeks 6 days HL: 2.3 cm 16 weeks 6 days HC/AC: 1.21 Estimated weight 173 (38th percentile based on age by current measurements; less than 3rd percentile based on age by LMP/1st ultrasound). Anatomical assessment demonstrates normal structures including cranium, choroid plexus, cavum, cerebellum/posterior fossa, diaphragm, stomach, cord insertion/three-vessel cord, kidneys/bladder, spine, and extremities. Limited evaluation of the facial features and heart/ventricular outflow tracts due to positioning and early age. IMPRESSION: 1. Single live intrauterine in transverse lie. 2. Estimated weight versus age discrepancy warrants further evaluation. 3. Anatomical limitations warrant follow-up examination. <Electronically signed by Babatunde Burgess > 10/02/20 [id number]
== END ==
LOC: M WHC 13:27
PROVIDERS: ATTEND Obstetrics & Gynecology
DX: Z34.82 Encounter for supervision of other normal pregnancy, second trimester (principal)

== ENCOUNTER → 2020-10-08 | Outpatient (CLI) | payer OTHER | LOC: M WHC 15:19 | PROVIDERS: ATTEND Obstetrics & Gynecology | DX: Z34.92 Encounter for supervision of normal pregnancy, unspecified, second trimester (principal); Z3A.18 18 weeks gestation of pregnancy; Z53.9 Procedure and treatment not carried out, unspecified reason ==

== ENCOUNTER → 2020-10-23 | Outpatient (CLI) | payer OTHER ==
--- NOTE | 2020-10-23 12:23 | REP ---
INDICATION: F/U ANATOMY. COMPARISON: 10/02/2020. TECHNIQUE: Real-time sonographic evaluation of the gravid uterus performed. FINDINGS: Estimated gestational age is21 weeks 0 days, EDC 03/05/2021. Today's measurements indicate appropriate growth. Presentation: Breech Placenta anterior, grade 1, without evidence of placenta previa. heart rate is recorded at 152 beats per minute. Amniotic fluid is subjectively normal. Closed cervical length is measured at 3.5 cm. Biometry chart: BPD: 47 mm, 20 weeks 1 days, 27th percentile. HC: 175 mm, 20 weeks 0 days, 21st percentile AC: 157 mm, 20 weeks 6 days, 46th percentile Femur length: 34 mm, 20 weeks 5 days, 42nd percentile HC to AC ratio: 1.12, normal range 1.05-1.24. Estimated weight: 369g, 28th percentile. anatomy: Cranium: Grossly normal Lateral Ventricles/Choroid Plexus: Previously seen Posterior Fossa/Cerebellum: Previously seen Nose/lips/profile: Grossly normal Four chamber heart: Grossly normal Right ventricular outflow tract: Grossly normal Left ventricular outflow tract: Grossly normal Left-sided stomach: Grossly normal Kidneys: Grossly normal Bladder: Grossly normal Cord Insertion: Grossly normal 3 vessel cord: Grossly normal Spine: Previously seen IMPRESSION: Viable single intrauterine gestation as above. <Electronically signed by Jose Malik > 10/23/20 [id number]
== END ==
LOC: M WHC 10:58
PROVIDERS: ATTEND Obstetrics & Gynecology
DX: O32.1XX0 Maternal care for breech presentation, not applicable or unspecified (principal); Z3A.18 18 weeks gestation of pregnancy

== ENCOUNTER → 2020-12-14 | Outpatient (CLI) | payer OTHER ==
[2020-12-14 13:41] LABS: HEMATOCRIT 30.9 % (36.0-47.0); HEMOGLOBIN 9.8 g/dl (12.0-15.5); MEAN CORPUSCULAR HEMOGLOBIN 28.4 pg (27.0-33.0); MEAN CORPUSCULAR HGB CONC 31.7 g/dl (32.0-36.5); MEAN CORPUSCULAR VOLUME 89.6 fl (80.0-96.0); PLATELET COUNT, AUTOMATED 227 10^3/uL (150-450); RED BLOOD COUNT 3.45 10^6/uL (4.00-5.40); WHITE BLOOD COUNT 8.5 10^3/uL (4.0-10.0)
== END ==
LOC: M LAB 11:47
PROVIDERS: ATTEND Advanced Practice Midwife
DX: Z34.92 Encounter for supervision of normal pregnancy, unspecified, second trimester (principal); Z3A.00 Weeks of gestation of pregnancy not specified

== ENCOUNTER 2021-01-10 18:19 | Outpatient (CLI) | payer OTHER ==
[~2021-01-10] VITALS: Ht 170.2 cm; Wt 72.8 kg
[2021-01-10] MEDS ORDERED: ACETGRA PO (18:45)
[2021-01-10 18:50] VITALS: BP 113/64
[2021-01-10] MEDS ORDERED: BETAMETHASONE SOLUSPAN 6MG/ML 5ML VIAL (J0702 PER 3MG) IM ONE (19:35)
[2021-01-10 20:08] LABS: HEMATOCRIT 32.8 % (36.0-47.0); HEMOGLOBIN 10.3 g/dl (12.0-15.5); MEAN CORPUSCULAR HEMOGLOBIN 28.4 pg (27.0-33.0); MEAN CORPUSCULAR HGB CONC 31.4 g/dl (32.0-36.5); MEAN CORPUSCULAR VOLUME 90.4 fl (80.0-96.0); PLATELET COUNT, AUTOMATED 220 10^3/uL (150-450); RED BLOOD COUNT 3.63 10^6/uL (4.00-5.40); WHITE BLOOD COUNT 10.6 10^3/uL (4.0-10.0)
[2021-01-10 20:20] LABS: INR 1.03; PROTHROMBIN TIME 13.7 SECONDS (12.5-14.3)
[2021-01-10 20:21] LABS: PARTIAL THROMBOPLASTIN TIME 29.4 SECONDS (24.2-38.5)
--- NOTE | 2021-01-10 22:13 | IPNPDOC ---
Obstetrical Progress Note Date of Service Jan 10, 2021 Subjective 25yo at 32+2 weeks EGA. Presents with complaint of episode of bleeding. Bleeding characterized by small clot / small amount of bright red blood. Denies persistent bleeding. Denies any significant pain, cramping, or frequent uterine contractions. No loss of fluid. Reports regular, frequent movement. ROS: No DEY, visual changes, RUQ pain, sob, cp, n/v/f/c. complications: anemia and anxiety PMH: anemia, anxiety SH: none OB: G1, 2017 . G2, 2018 SAB. G3, 2019 . 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 Digitally 0-1 cm, 25 %, -3, cephalic, intact, small amount of pink bloody discharge around the cervix. No active bleeding from the os. No foul odor or abnormal discharge. No significant tenderness on exam. TVUS,braden: CL = 3.7-4.0 cm with no funneling or dynamic changes. Cephalic presentation. EFM: Cat I / Reactive [place]: no evidence of obvious contraction pattern. Labs: c/w anemia (baseline); see Healios K.K values, KB neg A/P: 25 yo at 32+2 weeks EGA. Small amount of bleeding either from cervix or uterus. No clinical e/o acute abruption. Reassuring maternal and status. -Possible chronic/non-acute abruption, so I offered Betamethasone for mitigation of prematurity risks. Patient agreed to course of betamethasone after reviewing r/b/a/i and s/e. -Maternal and status reassuring/stable to manage as outpatient. Repeat dose of betamethasone in 24 hours. -Bleeding, pain, fever, infectious, FKC, labor/PPROM and pre-e precautions reviewed. Avani Topete DO FACOG. Objective Vital Signs Date Time Temp Pulse Resp B/P (MAP) Pulse Ox O2 Delivery O2 Flow Rate FiO2 01/10/21 18:50 98.4 101 18 113/64 (80) 97 LIZETH TOPETE DO Jan 10, 2021 22:12
== END 2021-01-10 21:41 | disposition home or self-care (01) ==
LOC: M LDO 18:19
PROVIDERS: ATTEND Obstetrics & Gynecology
DX: O20.9 Hemorrhage in early pregnancy, unspecified (principal); Z3A.32 32 weeks gestation of pregnancy; O99.013 Anemia complicating pregnancy, third trimester; D64.9 Anemia, unspecified
CPT/HCPCS: 36415; 59025; 76815; 85027; 85384; 85460; 85610; 85730; 96372; J0702

== ENCOUNTER 2021-01-11 20:02 | Outpatient (CLI) | payer OTHER ==
[~2021-01-11] VITALS: Ht 170.2 cm; Wt 73.4 kg
[~2021-01-11 20:02] MED LIST changes: +ACETGRA PO
[2021-01-11 20:38] VITALS: BP 111/59
[2021-01-11] MEDS ORDERED: BETAMETHASONE SOLUSPAN 6MG/ML 5ML VIAL (J0702 PER 3MG) IM ONE (21:00)
--- NOTE | 2021-01-11 21:06 | IPNPDOC ---
Text Note Date of Service The patient was seen on 01/11/21. NOTE Outpatient 25yo LINDA 03/05/2021. Presents @ 32w3d with betamethasone #2. Reports no further bleeding and rare mild cramping. Reports good activity. No distress Cat I tracing, no UC Discharged home with instructions. Verbalized understanding of s/s PTL. Keep next appt. VS,Fishbone, I+O VS, Fishbone, I+O Vital Signs Date Time Temp Pulse Resp B/P (MAP) Pulse Ox O2 Delivery O2 Flow Rate FiO2 01/11/21 20:38 98.1 89 18 111/59 (76) Nora López CNM Jan 11, 2021 21:05
== END 2021-01-11 21:20 | disposition home or self-care (01) ==
LOC: M LDO 20:02
PROVIDERS: ATTEND Advanced Practice Midwife
DX: O20.9 Hemorrhage in early pregnancy, unspecified (principal); Z3A.32 32 weeks gestation of pregnancy; O99.013 Anemia complicating pregnancy, third trimester; D64.9 Anemia, unspecified
CPT/HCPCS: 59025; 96372; J0702

== ENCOUNTER → 2021-02-05 | Outpatient (REF) | payer OTHER | LOC: M SFHCWAGY 14:51 | PROVIDERS: ATTEND Advanced Practice Midwife | DX: Z34.93 Encounter for supervision of normal pregnancy, unspecified, third trimester (principal); Z3A.36 36 weeks gestation of pregnancy ==

== ENCOUNTER → 2021-02-26 | Outpatient (CLI) | payer OTHER | LOC: M LABSMTC 14:24 | PROVIDERS: ATTEND Specialist | DX: Z11.52 Encounter for screening for COVID-19 (principal) ==

== ENCOUNTER 2021-03-07 22:46 | Inpatient (IN) | payer OTHER ==
[~2021-03-07] VITALS: Ht 170.2 cm; Wt 79.9 kg
[2021-03-07 23:06] VITALS: BP 133/74
[2021-03-08] VITALS (27 sets, daily range): BP systolic 108–156; BP diastolic 58–84
[2021-03-08] MEDS ORDERED: LACTATED RINGER'S 1000 ML IV STA (00:29)
[2021-03-08] MEDS ORDERED: OXYTOCIN INJ 10 UNITS/ML VIAL (J2590) IM PRN (00:30)
[2021-03-08] MEDS ORDERED: CARBOPROST TROMETHAMINE 250 MCG/ML AMP IM PRN (00:30)
[2021-03-08] MEDS ORDERED: LR 1,000 ML IV SCH ×2 (00:30→06:35)
[2021-03-08] MEDS ORDERED: OXYTOCIN INJ 10 UNITS/ML VIAL (J2590) IV PRN (00:30)
[2021-03-08] MEDS ORDERED: OXYTOCIN DRIP 30 UNITS in IV 1 EA IV SCH ×2 (00:30→06:35)
[2021-03-08] MEDS ORDERED: METHYLERGONOVINE MALEATE 0.2 MG/ML VIAL (J2210) IM PRN (00:30)
[2021-03-08] MEDS ORDERED: OXYTOCIN DRIP 30 UNITS in IV 1 EA IV PRN ×6 (00:30)
[2021-03-08] MEDS ORDERED: TRANEXAMIC ACID INJection 1,000 MG in NS 100 ML IV PRN (00:30)
[2021-03-08] MEDS ORDERED: LIDOCAINE 1% MDV 20ML VIAL INFIL PRN (00:30)
--- NOTE | 2021-03-08 00:54 | HPEPDOC ---
Obstetrical History & Physical General Date of Admission Mar 08, 2021 at 00:28 History of Present Illness 25-year-old G5, P2022 at 40+3 weeks gestation. Presents with LOF, clear at 2130 on 03/07/21. Denies any loss of fluid or vaginal bleeding. Reports regular movement. ROS: no DEY, cp, sob, fever/chills/nausea/vomiting. 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: No STI or dysplasia OB: G1, 2017 40+5 weeks , G2 SAB, G3 2019, 39+5 weeks , G4 SAB Sochx: No tobacco, alcohol or drug use (former smoker) FamHx: HTN, DM2, thyroid disease labs: Blood type O+, antibody screen negative, HepBsAg neg, HIV neg, rubella immune, Hep C antibody negative, RPR nonreactive, CT/GC neg, urine culture negative, 1 hour glucose challenge test 87 , GBS negative imaging: no anomalies or placental abnormalities Past Medical History Allergies Coded Allergies: No Known Allergies (Verified , 04/10/03) Medications Scheduled Ferrous Sulfate (Ferrous Sulfate) 325 Mg Tablet, 325 MG PO DAILY No122/Iron/Folic Acid ( Multi Tablet) 1 Each Tablet, 1 TAB PO DAILY Physical Examination Physical Examination GENERAL: Alert and oriented times three. ABDOMEN: Gravid and non-tender to touch. FETUS: Is vertex (VTX) by sterile vaginal examination (SVE), fetus is vertex (VTX) by Reymundo. HEART RATE: Regular rate and rhythm. LUNGS: Clear to auscultation (CTA). EXTREMITIES: No edema. No clonus. SVE: 75/-3, grossly ruptured + nitrazine/ferning, cephalic EFM: Cat I [place]: ctxs are rare/irregular. Vital Signs/I&O Vital Signs Date Time Temp Pulse Resp B/P (MAP) Pulse Ox O2 Delivery O2 Flow Rate FiO2 03/07/21 23:06 99.0 114 18 133/74 (93) Laboratory Data 24H LABS Laboratory Tests 2 03/08/21 00:30: Serology Scanned Report Hepatitis B Testing Assessment/Plan Assessment 25-year-old G5, P2 at 40+3 weeks gestation with spontaneous rupture of membranes consistent with prelabor rupture membranes. Reassuring maternal and status Plan Admit and orient. Rfid Analyst and consent. Labs and intravenous (IV) per unit protocol. Counseled on Pitocin and induction of labor (IOL). Anticipate normal spontaneous delivery (). C-S as appropriate. LIZETH HUSTON DO Mar 08, 2021 00:54
[2021-03-08 01:01] LABS: HEMATOCRIT 35.7 % (36.0-47.0); HEMOGLOBIN 11.6 g/dl (12.0-15.5); MEAN CORPUSCULAR HEMOGLOBIN 28.7 pg (27.0-33.0); MEAN CORPUSCULAR HGB CONC 32.5 g/dl (32.0-36.5); MEAN CORPUSCULAR VOLUME 88.4 fl (80.0-96.0); PLATELET COUNT, AUTOMATED 206 10^3/uL (150-450); RED BLOOD COUNT 4.04 10^6/uL (4.00-5.40); WHITE BLOOD COUNT 12.4 10^3/uL (4.0-10.0)
[2021-03-08 02:14] LABS: AMPHETAMINES URINE REFLEX NEGATIVE (NEGATIVE); BARBITURATES URINE REFLEX NEGATIVE (NEGATIVE); BENZODIAZEPINES URINE REFLEX NEGATIVE (NEGATIVE); CANNABINOIDS URINE REFLEX NEGATIVE (NEGATIVE); COCAINE METABOLITE URINE REFLE NEGATIVE (NEGATIVE); METHADONE URINE REFLEX NEGATIVE (NEGATIVE); OPIATES URINE REFLEX NEGATIVE (NEGATIVE); PHENCYCLIDINE URINE REFLEX NEGATIVE (NEGATIVE)
[2021-03-08] MEDS ORDERED: FENTANYL 2MCG/ML ROPIVACAINE 0.2% IN 0.9% NACL 100ML IVBAG As Ordered ONE (04:51)
[2021-03-08] MEDS ORDERED: LACTATED RINGER'S 1000 ML IV PRN (05:45)
[2021-03-08] MEDS ORDERED: FENTANYL/ROPIVACAINE/NACL BAG 100 ML EPIDURAL SCH (05:45)
[2021-03-08] MEDS ORDERED: ONDANSETRON 4MG/2ML VIAL IV PRN ×2 (05:45→06:35)
[2021-03-08] MEDS ORDERED: ePHEDrine SULFATE 25 MG/5 ML(5MG/ML) SYRINGE IV PRN (05:45)
[2021-03-08] MEDS ORDERED: EPIDURAL/PCA KEYS XX PRN (05:45)
[2021-03-08] MEDS ORDERED: EPIDURAL COMMENT XX SCH (05:45)
[2021-03-08] MEDS ORDERED: REFRIGERATOR IV KEYS XX PRN (05:45)
[2021-03-08] MEDS ORDERED: diphenhydrAMINE 50MG/ML VIAL (J1200) IV PRN (05:45)
[2021-03-08] MEDS ORDERED: NALOXONE INJ 0.4MG/1ML VIAL (J2310 PER 1MG) IV PRN (05:45)
--- NOTE | 2021-03-08 06:33 | DNPDOC ---
[facility] Delivery Note Delivery Note DATE OF DELIVERY: 03/08/2021 TIME OF DELIVERY: 0620 Spontaneous vaginal delivery. POUNCER: Dr. Jack Topete DO FACOG ANESTHESIA: Epidural LACERATION: None ESTIMATED BLOOD LOSS:. 200 mL. FINDINGS: 7 pound 9 ounce (3440g) Female infant, Score 9 and 9. DELIVERY SUMMARY: The active phase and second stage of labor progressed in normal fashion.. She received Pitocin augmentation throughout her labor course. The head delivered in the QUINCY position, and restituted LOT. No nuchal cord was noted. The anterior shoulder delivered with gentle downward guidance and the remainder of the body delivered with ease. The baby was placed on the patient's chest. Delayed cord clamping occurred for approximately 1 minute. The cord was then doubly clamped and cut. IV Pitocin was bolused to actively manage the third stage of labor. The placenta delivered intact without any difficulty within 10 minutes of delivery. The uterine fundus was noted to be firm and 2 cm below the umbilicus. The cervix, vagina, vulva and perineum were inspected.. No lacerations. Excellent hemostasis was noted. Sponge, needle and instrument counts were correct per protocol. DO NAOMIE Cohen JONATHAN R. DO Mar 08, 2021 06:33
[2021-03-08] MEDS ORDERED: DOCUSATE SODIUM 100MG CAPSULE PO PRN (06:35)
[2021-03-08] MEDS ORDERED: IBUPROFEN 800 MG TAB PO PRN (06:35)
[2021-03-08] MEDS ORDERED: RHOGAM 300 MCG (1500 IU) INJ (J2790) IM SCH (06:35)
[2021-03-08] MEDS ORDERED: ACETAMINOPHEN 500 MG TAB PO PRN (06:35)
[2021-03-08] MEDS ORDERED: ACETAMINOPHEN TAB 650MG DOSE (2X325MG) PO PRN (06:35)
[2021-03-08] MEDS ORDERED: IBUPROFEN 600MG TAB PO PRN (06:35)
[2021-03-08] MEDS ORDERED: MEASLES,MUMPS,RUBELLA VACCINE INJ (MMR-II) (90707) SC SCH (06:35)
[2021-03-08] MEDS ORDERED: DIBUCAINE 1% OINTMENT 30GM TOP PRN (06:35)
[2021-03-08] MEDS: PRENATAL VITAMINS CHEWABLE TABLET PO SCH (09:14)
[2021-03-09 06:00] VITALS: BP 125/73
[2021-03-09] MEDS: PRENATAL VITAMINS CHEWABLE TABLET PO SCH (09:35)
[2021-03-09 18:00] VITALS: BP 110/74
== END 2021-03-09 19:35 | disposition home or self-care (01) | DRG 560 ==
LOC: M LDO 22:46 → M LDI 03-08 00:28 → M OBS 03-08 09:23
PROVIDERS: ADMIT Obstetrics & Gynecology; ATTEND Obstetrics & Gynecology
PROC: 10E0XZZ Delivery of Products of Conception, External Approach (ICD-10-PCS; principal; 2021-03-08)
DX: O42.02 Full-term premature rupture of membranes, onset of labor within 24 hours of rupture (principal); Z3A.40 40 weeks gestation of pregnancy; Z37.0 Single live birth; O48.0 Post-term pregnancy

== ENCOUNTER → 2021-04-29 | Outpatient (CLI) | payer OTHER | LOC: M LABSMTC 09:59 | PROVIDERS: ATTEND Anesthesiology | DX: Z01.812 Encounter for preprocedural laboratory examination (principal); Z20.822 Contact with and (suspected) exposure to COVID-19 ==

== ENCOUNTER 2021-05-03 09:46 | Day surgery (SDC) | payer OTHER ==
[~2021-05-03] VITALS: Ht 170.2 cm; Wt 70.2 kg
[~2021-05-03 09:46] MED LIST changes: +LR 1,000 ML IV ONE
[2021-05-03 10:22] LABS: HEMATOCRIT 39.9 % (36.0-47.0); HEMOGLOBIN 13.1 g/dl (12.0-15.5); MEAN CORPUSCULAR HEMOGLOBIN 28.9 pg (27.0-33.0); MEAN CORPUSCULAR HGB CONC 32.8 g/dl (32.0-36.5); MEAN CORPUSCULAR VOLUME 88.1 fl (80.0-96.0); PLATELET COUNT, AUTOMATED 209 10^3/uL (150-450); RED BLOOD COUNT 4.53 10^6/uL (4.00-5.40); WHITE BLOOD COUNT 6.2 10^3/uL (4.0-10.0)
[2021-05-03] MEDS ORDERED: BUPIVACAINE HCL 0.25% 30ML VIAL As Ordered ONE (10:37)
[2021-05-03] MEDS ORDERED: ROCURONIUM BROMIDE 50 MG/5 ML VIAL As Ordered ONE (10:41)
[2021-05-03] MEDS ORDERED: MIDAZOLAM INJ 2MG/2ML VIAL (J2250 PER 1MG) As Ordered ONE (10:41)
[2021-05-03] MEDS ORDERED: LIDOCAINE 2% 100MG/5ML SDV (FOR ANES.) As Ordered ONE (10:41)
[2021-05-03] MEDS ORDERED: fentaNYL 100 MCG/2 ML INJECTION (J3010) As Ordered ONE (10:41)
[2021-05-03] MEDS ORDERED: propofoL 200 MG/20 ML VIAL As Ordered ONE (10:41)
[2021-05-03 10:45] LABS: HCG, SERUM QUALITATIVE NEGATIVE (NEGATIVE)
[2021-05-03] MEDS ORDERED: SILVER NITRATE APPLICATOR As Ordered ONE (11:29)
[2021-05-03] MEDS ORDERED: HYDROmorphone HCL 2 MG/ML 1ML VIAL (J1170) As Ordered ONE (11:56)
[2021-05-03] MEDS ORDERED: ONDANSETRON 4MG/2ML VIAL As Ordered ONE (12:05)
[2021-05-03] MEDS ORDERED: KETOROLAC 60MG 2ML VIAL As Ordered ONE (12:05)
[2021-05-03] MEDS ORDERED: METOCLOPRAMIDE INJ 10MG/2ML VIAL (J2765 PER 1) As Ordered ONE (12:05)
[2021-05-03] MEDS ORDERED: ACETAMINOPHEN 1000MG 100ML IV BTL (OFIRMEV) (J0131 PER 10MG) As Ordered ONE (12:06)
--- NOTE | 2021-05-03 12:29 | ROOPDOC ---
[facility] Report Of Operation Report of Operation Date of procedure: 05/03/2021 Preoperative diagnosis: Satisfied parity. Postoperative diagnosis: Same Procedure: Laparoscopic bilateral salpingectomy Anesthesia: Gen. endotracheal Estimated blood loss. 5 mL IV fluids replaced 1000 mL lactated Ringer's Drains: In and out catheter 100 mL of urine Complications: None Preoperative antibiotics: None indicated Specimens: Bilateral fallopian tubes Intraoperative findings: Normal size, shape, contour of the uterus. Normal adnexa/ovaries bilaterally. Minimal pelvic adhesions Procedure: The patient was counseled and consented on the risks, benefits, indications, and alternatives of the procedure. Informed consent was obtained. She was taken to the operating room with an IV running. She was placed on the operating table in the dorsal supine position. Gen. anesthesia was administered and the airway was secured without any difficulty. A timeout was performed per protocol. She was prepared and draped in the normal sterile fashion. Attention was turned to the pelvis. The bladder was drained with in and out sterile catheter. A speculum was placed into the vagina with good visualization of the cervix. A single- tooth tenaculum was placed on the anterior lip of the cervix and downward traction was applied. The cervix was sequentially dilated with Leobardo dilators up to a #16. A ZUMI uterine manipulator was placed without any difficulty. The single-tooth tenaculum was removed. The tenaculum sites were noted to be hemostatic. A sterile glove switch was performed. Attention was turned to the abdomen. A 5mm umbilical incision was made with the 11 blade. Through this incision, a Veress needle was placed into the intraperitoneal cavity. Intraperitoneal placement was confirmed with ease of flow of normal saline, a positive drop test and no return on aspiration. The opening pressure was 2 mmHg. The abdomen was insufflated with 2 L of CO2. The Veress needle was removed. A 5 mm laparoscopic trocar was placed under direct visualization without any difficulty, and intraperitoneal placement was confirmed. No incidental bleeding or injury was evident. The patient was placed in steep Trendelenburg. 2 additional laparoscopic port sites were placed through 5 mm incisions in the lower left quadrant. Each trocar/cannula was placed under direct visualization without any difficulty, incidental bleeding or injury. Attention was turned to the right fallopian tube. The right fallopian tube was followed out to the fimbriated end, grasped and elevated. The underlying mesosalpinx was sequentially clamped, coagulated and transected, until the level of the cornu was reached. At this level, the fallopian tube was clamped, coagulated and transected, thus amputating the fallopian tube. The fallopian tube was brought through the cannula without any difficulty and sent to pathology for permanent section. Attention was turned to the left fallopian tube. The left fallopian tube was followed out to the fimbriated end, grasped and elevated. The underlying mesosalpinx was sequentially clamped, coagulated and transected, until the level of the cornu was reached. At this level the fallopian tube was clamped, coagulated and transected, thus amputating the fallopian tube. The fallopian tube was brought to the cannula without any difficulty and sent to pathology for permanent section. Both right and left surgical sites were noted to be completely hemostatic. The gas was released from the abdomen. The patient was taken out of Trendelenburg position. The cannulas were removed. The skin incisions were closed with 4-0 Monocryl in subcuticular fashion and reinforced with Dermabond. The uterine manipulator was removed, the vagina was noted to be clear of any sponge or instrument. Sponge, needle and instrument counts were correct per protocol. The patient tolerated the entire procedure very well. She was transferred to the PACU in good and stable condition. DO NAOMIE Cohen JONATHAN R. DO May 03, 2021 12:29
[2021-05-03] MEDS ORDERED: IBUP1TAB7 PO (12:30)
[2021-05-03] MEDS ORDERED: COLA100C5 PO (12:31)
[2021-05-03] MEDS ORDERED: OXYC1TAB23 PO (12:31)
[2021-05-03] MEDS ORDERED: LR 1,000 ML IV SCH ×2 (12:40→13:40)
[2021-05-03] MEDS ORDERED: fentaNYL 100 MCG/2 ML INJECTION (J3010) IV PRN (12:40)
[2021-05-03] MEDS ORDERED: ONDANSETRON 4MG/2ML VIAL IV PRN (12:40)
[2021-05-03] MEDS ORDERED: oxyCODONE 5MG TAB PO PRN (12:40)
[2021-05-03] MEDS ORDERED: HYDROMORPHONE HCL 0.5 MG/ 0.5 ML SYRINGE (J1170 PER 1) IV PRN (12:40)
[2021-05-03 14:33] VITALS: BP 114/58
== END 2021-05-03 14:40 | disposition home or self-care (01) ==
LOC: M SDC 09:46
PROVIDERS: ATTEND Obstetrics & Gynecology
DX: Z30.2 Encounter for sterilization (principal); F41.9 Anxiety disorder, unspecified; R51.9 Headache, unspecified; Z79.899 Other long term (current) drug therapy
CPT/HCPCS: 36415; 58661; 84703; 85027; 86850; 86900; 86901; 88302; J0131; J1170; J1885; J2250; J2405; J2765; J3010

== ENCOUNTER → 2021-06-20 | Outpatient (REF) | payer OTHER ==
[~2021-06-20] MED LIST changes: +COLA100C5 PO; +IBUP1TAB7 PO; -LR 1,000 ML IV ONE; +OXYC1TAB23 PO
== END ==
LOC: M PLALAB 12:52
PROVIDERS: ATTEND Obstetrics & Gynecology
DX: N91.1 Secondary amenorrhea (principal); Z53.9 Procedure and treatment not carried out, unspecified reason

== ENCOUNTER → 2021-06-21 | Outpatient (CLI) | payer OTHER | LOC: M PLALAB 08:59 | PROVIDERS: ATTEND Obstetrics & Gynecology | DX: N91.1 Secondary amenorrhea (principal) ==

== ENCOUNTER → 2021-07-09 | Outpatient (REF) | payer OTHER ==
[2021-07-09 15:27] LABS: GC DNA AMPLIFICATION NEGATIVE (NEGATIVE)
== END ==
LOC: M SFHCWAGY 13:05
PROVIDERS: ATTEND Advanced Practice Midwife
DX: Z11.3 Encounter for screening for infections with a predominantly sexual mode of transmission (principal)

== ENCOUNTER 2021-10-12 20:02 | Emergency (ER) | payer OTHER ==
[~2021-10-12] VITALS: Ht 170.2 cm; Wt 72.9 kg
[2021-10-12] MEDS ORDERED: BENZ200C70 PO (22:36)
[2021-10-12 23:12] VITALS: BP 128/70
== END 2021-10-12 23:14 | disposition home or self-care (01) ==
LOC: M ED 20:02
DX: J06.9 Acute upper respiratory infection, unspecified (principal); Z20.822 Contact with and (suspected) exposure to COVID-19
CPT/HCPCS: 99283; U0003

== ENCOUNTER → 2021-12-23 | Outpatient (REF) | payer OTHER ==
[~2021-12-23] MED LIST changes: +BENZ200C70 PO
[2021-12-23 21:39] LABS: GC DNA AMPLIFICATION NEGATIVE (NEGATIVE)
== END ==
LOC: M SFHCWAGY 17:52
PROVIDERS: ATTEND Obstetrics & Gynecology
DX: Z12.4 Encounter for screening for malignant neoplasm of cervix (principal)

== ENCOUNTER → 2021-12-25 | Outpatient (CLI) | payer OTHER ==
[2021-12-25 15:29] LABS: BASO % 0.5 % (0.0-1.0); EOS # 0.3 10^3/uL (0.0-0.5); EOS % 4.6 % (0.0-3.0); HEMATOCRIT 38.8 % (36.0-47.0); HEMOGLOBIN 12.5 g/dl (12.0-15.5); LYMPH # 1.4 10^3/uL (1.5-5.0); LYMPH % 23.8 % (24.0-44.0); MEAN CORPUSCULAR HEMOGLOBIN 28.2 pg (27.0-33.0); MEAN CORPUSCULAR HGB CONC 32.2 g/dl (32.0-36.5); MEAN CORPUSCULAR VOLUME 87.6 fl (80.0-96.0); MONO # 0.6 10^3/uL (0.0-0.8); MONO % 9.6 % (2.0-8.0); NEUTROPHILS # 3.6 10^3/uL (1.5-8.5); NEUTROPHILS % 61.2 % (36.0-66.0); PLATELET COUNT, AUTOMATED 195 10^3/uL (150-450); RED BLOOD COUNT 4.43 10^6/uL (4.00-5.40); WHITE BLOOD COUNT 5.9 10^3/uL (4.0-10.0)
[2021-12-25 16:02] LABS: ALBUMIN 3.9 GM/DL (3.2-5.2); ALT/SGPT 32 U/L (12-78); BILIRUBIN,TOTAL 0.5 MG/DL (0.2-1.0); BLOOD UREA NITROGEN 16 MG/DL (7-18); CALCIUM LEVEL 8.7 MG/DL (8.5-10.1); CARBON DIOXIDE LEVEL 30 MEQ/L (21-32); CHLORIDE LEVEL 108 MEQ/L (98-107); CREATININE FOR GFR 0.55 MG/DL (0.55-1.30); FERRITIN 18 NG/ML (8-252); FREE T4 0.92 NG/DL (0.76-1.46); GLOMERULAR FILTRATION RATE > 60.0 (>60); GLUCOSE, FASTING 83 MG/DL (70-100); IRON (FE) 94 UG/DL (50-170); PERCENT SATURATION 26.6 % (13.2-45.0); POTASSIUM SERUM 3.9 MEQ/L (3.5-5.1); SODIUM LEVEL 141 MEQ/L (136-145); TOTAL IRON BINDING CAPACITY 353 UG/DL (250-450); TOTAL PROTEIN 6.6 GM/DL (6.4-8.2)
[2021-12-25 16:03] LABS: TOTAL 25(OH) VITAMIN D 29.1 NG/ML (30.0-100.0)
== END ==
LOC: M PLALAB 13:52
PROVIDERS: ATTEND Physician Assistant
DX: F32.A Depression, unspecified (principal); D50.9 Iron deficiency anemia, unspecified; G43.109 Migraine with aura, not intractable, without status migrainosus

== ENCOUNTER → 2022-01-17 | Outpatient (CLI) | payer OTHER | LOC: M WHC 10:30 | PROVIDERS: ATTEND Obstetrics & Gynecology | DX: N93.9 Abnormal uterine and vaginal bleeding, unspecified (principal) ==

== ENCOUNTER 2022-02-24 08:39 | Day surgery (SDC) | payer OTHER ==
[~2022-02-24] VITALS: Ht 170.2 cm; Wt 72.9 kg
[2022-02-24] VITALS (7 sets, daily range): BP systolic 102–120; BP diastolic 58–75
[~2022-02-24 08:39] MED LIST changes: +FERR325T19 PO; +SERT25TA21 PO; +SUMA25TA3 PO; +ceFAZolin SOD 2 GM in IV 1 EA IV ONE
[2022-02-24] MEDS ORDERED: hydrOXYzine 25 MG TAB PO SCH ×2 (09:00→21:00)
[2022-02-24 09:06] LABS: HEMATOCRIT 40.3 % (36.0-47.0); HEMOGLOBIN 13.2 g/dl (12.0-15.5); MEAN CORPUSCULAR HEMOGLOBIN 28.7 pg (27.0-33.0); MEAN CORPUSCULAR HGB CONC 32.8 g/dl (32.0-36.5); MEAN CORPUSCULAR VOLUME 87.6 fl (80.0-96.0); PLATELET COUNT, AUTOMATED 240 10^3/uL (150-450); WHITE BLOOD COUNT 6.6 10^3/uL (4.0-10.0)
[2022-02-24] MEDS ORDERED: LR 1,000 ML IV SCH ×3 (09:25→14:30)
[2022-02-24 09:34] LABS: HCG, SERUM QUALITATIVE NEGATIVE (NEGATIVE)
[2022-02-24] MEDS ORDERED: BUPIVACAINE HCL 0.25% 30ML VIAL As Ordered ONE (11:28)
[2022-02-24] MEDS ORDERED: METHYLENE BLUE 0.5% (5MG/ML) 10 ML AMP (PROVAYBLUE) As Ordered ONE (11:28)
[2022-02-24] MEDS ORDERED: dexameTHASONE 4 MG/ML 1ML VIAL (J1100 PER 1MG) As Ordered ONE (12:09)
[2022-02-24] MEDS ORDERED: HYDROmorphone HCL 2MG/ML 1ML VIAL As Ordered ONE (12:09)
[2022-02-24] MEDS ORDERED: propofoL 200 MG/20 ML VIAL As Ordered ONE (12:09)
[2022-02-24] MEDS ORDERED: LIDOCAINE 2% 100MG/5ML SDV (FOR ANES.) As Ordered ONE (12:09)
[2022-02-24] MEDS ORDERED: SUGAMMADEX SODIUM 500 MG/5 ML VIAL (BRIDION) As Ordered ONE (12:09)
[2022-02-24] MEDS ORDERED: fentaNYL 100 MCG/2 ML INJECTION As Ordered ONE (12:09)
[2022-02-24] MEDS ORDERED: MIDAZOLAM INJ 2MG/2ML VIAL (J2250 PER 1MG) As Ordered ONE (12:09)
[2022-02-24] MEDS ORDERED: ONDANSETRON 4MG/2ML VIAL As Ordered ONE (12:09)
[2022-02-24] MEDS ORDERED: KETOROLAC 60MG 2ML VIAL As Ordered ONE (12:09)
[2022-02-24] MEDS ORDERED: ROCURONIUM BROMIDE 50 MG/5 ML VIAL As Ordered ONE ×2 (12:09→12:28)
[2022-02-24] MEDS ORDERED: INSULIN LISPRO (NovoLOG) PER UNIT SC PRN (14:05)
[2022-02-24] MEDS ORDERED: oxyCODONE 5MG TAB PO PRN (14:05)
[2022-02-24] MEDS ORDERED: MORPHINE 2 MG/ML 1ML VIAL IV PRN (14:05)
[2022-02-24] MEDS ORDERED: fentaNYL 100 MCG/2 ML INJECTION IV PRN (14:05)
[2022-02-24] MEDS ORDERED: ONDANSETRON 4MG/2ML VIAL IV PRN ×2 (14:05→14:30)
[2022-02-24] MEDS ORDERED: PERC5TAB12 PO (14:22)
[2022-02-24] MEDS ORDERED: IBUP1TAB7 PO (14:25)
[2022-02-24] MEDS ORDERED: ONDA4TAB6 PO (14:26)
[2022-02-24] MEDS ORDERED: COLA100C5 PO (14:26)
[2022-02-24] MEDS ORDERED: PERCOCET 5MG/325MG TAB PO PRN ×2 (16:35)
[2022-02-24] MEDS ORDERED: MORPHINE 4 MG/ML 1ML VIAL/SYRINGE IV PRN (16:35)
[2022-02-24] MEDS ORDERED: KETOROLAC 30 MG/ML 1ML VIAL IV SCH (18:00)
[2022-02-24] MEDS ORDERED: DOCUSATE SODIUM 100MG CAPSULE PO SCH (21:00)
[2022-02-25] MEDS ORDERED: IBUPROFEN 800 MG TAB PO SCH (20:00)
== END 2022-02-24 21:15 | disposition home or self-care (01) ==
LOC: M SDC 08:39 → M PED 14:59 → M SDC 21:15
PROVIDERS: ATTEND Obstetrics & Gynecology
DX: N93.9 Abnormal uterine and vaginal bleeding, unspecified (principal); N72 Inflammatory disease of cervix uteri; D64.9 Anemia, unspecified; F41.9 Anxiety disorder, unspecified; Z79.899 Other long term (current) drug therapy; Z87.891 Personal history of nicotine dependence
CPT/HCPCS: 36415; 58570; 84703; 85027; 86850; 86900; 86901; 87426; 88307; J0690; J1100; J1170; J1885; J2250; J2405; J3010; Q9968; S2900

== ENCOUNTER → 2022-10-27 | Outpatient (CLI) | payer OTHER ==
[~2022-10-27] MED LIST changes: +ONDA4TAB6 PO; +PERC5TAB12 PO; -ceFAZolin SOD 2 GM in IV 1 EA IV ONE
== END ==
LOC: M WHC 08:10
PROVIDERS: ATTEND Obstetrics & Gynecology
DX: N83.01 Follicular cyst of right ovary (principal); N83.02 Follicular cyst of left ovary; Z90.710 Acquired absence of both cervix and uterus

== ENCOUNTER → 2022-11-25 | Outpatient (CLI) | payer OTHER | LOC: M RAD 12:50 | PROVIDERS: ATTEND Obstetrics & Gynecology | DX: R10.32 Left lower quadrant pain (principal) ==

== ENCOUNTER → 2023-10-09 | Outpatient (REF) | payer OTHER ==
[2023-10-09 14:00] LABS: C REACTIVE PROTEIN QUANTITATIV < 0.40 MG/DL (<1.0)
[2023-10-09 14:01] LABS: IRON (FE) 59 UG/DL (50-170); PERCENT SATURATION 18.4 % (13.2-45.0); TOTAL IRON BINDING CAPACITY 321 UG/DL (250-425)
== END ==
LOC: M SFHCADAM 10:30
PROVIDERS: ATTEND Physician Assistant
DX: M25.50 Pain in unspecified joint (principal); D50.9 Iron deficiency anemia, unspecified

== ENCOUNTER → 2024-01-12 | Outpatient (CLI) | payer OTHER ==
[~2024-01-12] MED LIST changes: -MIRA1POW3 PO; +MIRA33506 PO
== END ==
LOC: M PLALAB 14:02
PROVIDERS: ATTEND Student in an Organized Health Care Education/Training Program
DX: M54.50 Low back pain, unspecified (principal)

== ENCOUNTER → 2024-02-05 | Outpatient (CLI) | payer OTHER | LOC: M PLAIMG 10:15 | PROVIDERS: ATTEND Physician Assistant | DX: M54.50 Low back pain, unspecified (principal) ==

== ENCOUNTER → 2024-02-19 | Outpatient (REF) | payer OTHER | LOC: M SFHCADAM 16:58 | PROVIDERS: ATTEND Physician Assistant | DX: J02.9 Acute pharyngitis, unspecified (principal) ==

== ENCOUNTER → 2024-03-09 | Outpatient (CLI) | payer OTHER ==
[~2024-03-09] MED LIST changes: +ONDA-282 PO; -ONDA4TAB6 PO
[2024-03-09 15:41] LABS: BASO % 0.2 % (0.0-1.0); EOS # 0.2 10^3/uL (0.0-0.5); EOS % 2.1 % (0.0-3.0); HEMATOCRIT 39.2 % (36.0-47.0); HEMOGLOBIN 13.1 g/dl (12.0-15.5); LYMPH # 2.2 10^3/uL (1.5-5.0); LYMPH % 25.4 % (24.0-44.0); MEAN CORPUSCULAR HEMOGLOBIN 29.6 pg (27.0-33.0); MEAN CORPUSCULAR HGB CONC 33.4 g/dl (32.0-36.5); MEAN CORPUSCULAR VOLUME 88.5 fl (80.0-96.0); MONO # 0.7 10^3/uL (0.0-0.8); MONO % 8.3 % (2.0-8.0); NEUTROPHILS # 5.5 10^3/uL (1.5-8.5); NEUTROPHILS % 63.8 % (36.0-66.0); PLATELET COUNT, AUTOMATED 255 10^3/uL (150-450); RED BLOOD COUNT 4.43 10^6/uL (4.00-5.40); WHITE BLOOD COUNT 8.6 10^3/uL (4.0-10.0)
[2024-03-09 16:08] LABS: ALBUMIN 3.9 G/DL (3.2-5.2); ALKALINE PHOSPHATASE 79 U/L (46-116); ALT/SGPT 36 U/L (7.0-40); AST/SGOT 20 U/L (<34); BILIRUBIN,TOTAL 0.5 MG/DL (0.3-1.2); BLOOD UREA NITROGEN 16 MG/DL (9-23); CARBON DIOXIDE LEVEL 29 MMOL/L (20-31); CHLORIDE LEVEL 104 MMOL/L (98-107); CREATININE FOR GFR 0.71 MG/DL (0.55-1.30); GLOMERULAR FILTRATION RATE > 60.0 (>60); GLUCOSE, FASTING 75 MG/DL (60-100); POTASSIUM SERUM 4.5 MMOL/L (3.5-5.1); SODIUM LEVEL 137 MMOL/L (136-145); TOTAL PROTEIN 6.6 G/DL (5.7-8.2)
== END ==
LOC: M PLAIMG 14:25
PROVIDERS: ATTEND Physician Assistant
DX: J18.9 Pneumonia, unspecified organism (principal); R53.83 Other fatigue; R50.9 Fever, unspecified

== ENCOUNTER → 2024-05-25 | Outpatient (REF) | payer OTHER ==
[2024-05-25 13:49] LABS: BASO % 0.6 % (0.0-1.0); EOS # 0.1 10^3/uL (0.0-0.5); EOS % 2.5 % (0.0-3.0); HEMATOCRIT 43.3 % (36.0-47.0); HEMOGLOBIN 14.2 g/dl (12.0-15.5); LYMPH # 1.6 10^3/uL (1.5-5.0); LYMPH % 30.7 % (24.0-44.0); MEAN CORPUSCULAR HEMOGLOBIN 29.9 pg (27.0-33.0); MEAN CORPUSCULAR HGB CONC 32.8 g/dl (32.0-36.5); MEAN CORPUSCULAR VOLUME 91.2 fl (80.0-96.0); MONO # 0.5 10^3/uL (0.0-0.8); MONO % 9.3 % (2.0-8.0); NEUTROPHILS % 56.7 % (36.0-66.0); PLATELET COUNT, AUTOMATED 273 10^3/uL (150-450); RED BLOOD COUNT 4.75 10^6/uL (4.00-5.40); URIC ACID 4.7 MG/DL (3.1-7.8); WHITE BLOOD COUNT 5.3 10^3/uL (4.0-10.0)
[2024-05-25 13:52] LABS: C REACTIVE PROTEIN QUANTITATIV < 0.40 MG/DL (<1.0)
[2024-05-25 13:53] LABS: ALBUMIN 3.9 G/DL (3.2-5.2); ALKALINE PHOSPHATASE 66 U/L (46-116); ALT/SGPT 38 U/L (7.0-40); AST/SGOT 19 U/L (<34); BILIRUBIN,TOTAL 0.4 MG/DL (0.3-1.2); BLOOD UREA NITROGEN 17 MG/DL (9-23); CALCIUM LEVEL 9.2 MG/DL (8.5-10.1); CARBON DIOXIDE LEVEL 28 MMOL/L (20-31); CHLORIDE LEVEL 108 MMOL/L (98-107); CPK CREATINE PHOSPHOKINASE 96 U/L (34-145); CREATININE FOR GFR 0.71 MG/DL (0.55-1.30); GLOMERULAR FILTRATION RATE > 60.0 (>60); GLUCOSE, FASTING 94 MG/DL (60-100); POTASSIUM SERUM 4.6 MMOL/L (3.5-5.1); SODIUM LEVEL 141 MMOL/L (136-145)
[2024-05-25 13:54] LABS: RHEUMATOID FACTOR QUANT < 3.5 IU/ML (<14)
[2024-05-25 13:56] LABS: FREE T4 0.99 NG/DL (0.89-1.76)
[2024-05-25 13:57] LABS: THYROID STIMULATING HORMONE 1.777 uIU/ML (0.55-4.78)
[2024-05-25 13:58] LABS: ERYTHROCYTE SEDIMENTATION RATE 12 mm/hr (0-20)
[2024-05-26 12:48] LABS: ANA SCREEN, IFA NEGATIVE (NEGATIVE)
[2024-05-27 02:22] LABS: CYCLIC CITRULLINATED PEPTIDE < 16 UNITS (<20)
== END ==
LOC: M SFHCADAM 09:48
PROVIDERS: ATTEND Physician Assistant
DX: M79.10 Myalgia, unspecified site (principal); M25.50 Pain in unspecified joint

== ENCOUNTER → 2024-06-21 | Outpatient (REF) | payer OTHER | LOC: M LAB REF 16:21 | PROVIDERS: ATTEND Nurse Practitioner Family | DX: J06.9 Acute upper respiratory infection, unspecified (principal) ==

== ENCOUNTER → 2024-07-07 | Outpatient (CLI) | payer OTHER | LOC: M PLARAD 08:19 | PROVIDERS: ATTEND Physician Assistant | DX: M62.81 Muscle weakness (generalized) (principal) ==

== ENCOUNTER 2024-10-06 12:14 | Emergency (ER) | payer MEDICAID, OTHER ==
[~2024-10-06] VITALS: Ht 170.2 cm; Wt 70.7 kg
[2024-10-06 16:48] VITALS: BP 117/79; TEMP 97.9; O2SAT 100
== END 2024-10-06 16:51 | disposition home or self-care (01) ==
LOC: M ED 12:14
DX: S06.0X0A Concussion without loss of consciousness, initial encounter (principal); W22.8XXA Striking against or struck by other objects, initial encounter; Y92.014 Private driveway to single-family (private) house as the place of occurrence of the external cause; Z79.899 Other long term (current) drug therapy; Y93.9 Activity, unspecified; Y99.9 Unspecified external cause status

== ENCOUNTER 2025-01-28 15:59 | Emergency (ER) | payer MEDICAID, OTHER ==
[~2025-01-28] VITALS: Ht 170.2 cm; Wt 58.3 kg
[2025-01-28 16:36] LABS: BASO % 0.5 % (0.0-1.0); EOS # 0.1 10^3/uL (0.0-0.5); HEMATOCRIT 40.8 % (36.0-47.0); HEMOGLOBIN 13.6 g/dl (12.0-15.5); LYMPH # 1.6 10^3/uL (1.5-5.0); LYMPH % 27.2 % (24.0-44.0); MEAN CORPUSCULAR HEMOGLOBIN 29.1 pg (27.0-33.0); MEAN CORPUSCULAR HGB CONC 33.3 g/dl (32.0-36.5); MEAN CORPUSCULAR VOLUME 87.2 fl (80.0-96.0); MONO # 0.4 10^3/uL (0.0-0.8); MONO % 6.4 % (2.0-8.0); NEUTROPHILS # 3.7 10^3/uL (1.5-8.5); NEUTROPHILS % 64.6 % (36.0-66.0); PLATELET COUNT, AUTOMATED 218 10^3/uL (150-450); RED BLOOD COUNT 4.68 10^6/uL (4.00-5.40); WHITE BLOOD COUNT 5.8 10^3/uL (4.0-10.0)
[2025-01-28 16:56] LABS: BLOOD UREA NITROGEN 18 MG/DL (9-23); CALCIUM LEVEL 9.5 MG/DL (8.5-10.1); CARBON DIOXIDE LEVEL 27 MMOL/L (20-31); CHLORIDE LEVEL 106 MMOL/L (98-107); CREATININE FOR GFR 0.75 MG/DL (0.55-1.30); GLOMERULAR FILTRATION RATE > 90.0 (>60); GLUCOSE, FASTING 79 MG/DL (60-100); POTASSIUM SERUM 4.5 MMOL/L (3.5-5.1); SODIUM LEVEL 141 MMOL/L (136-145)
[2025-01-28] MEDS: diphenhydrAMINE 50MG/ML VIAL IV ONE (18:32)
[2025-01-28] MEDS: ONDANSETRON 4MG 2ML VIAL IV ONE (18:32)
[2025-01-28] MEDS: KETOROLAC 30 MG/ML 1ML VIAL IV ONE (18:32)
[2025-01-28] MEDS: METOCLOPRAMIDE INJ 10MG/2ML VIAL IV ONE (18:32)
[2025-01-28] MEDS: NS (Normal Saline) 0.9% 1,000 ML IV ONE (18:32)
[2025-01-28 18:46] VITALS: TEMP 99.2
[2025-01-28 19:57] VITALS: BP 100/54; O2SAT 99
== END 2025-01-28 20:00 | disposition home or self-care (01) ==
LOC: M ED 15:59
DX: G43.909 Migraine, unspecified, not intractable, without status migrainosus (principal); Z79.899 Other long term (current) drug therapy; Z79.83 Long term (current) use of bisphosphonates
CPT/HCPCS: 70450; 80048; 84702; 85025; 96361; 96374; 99284; J1200; J1885; J2405; J2765

== ENCOUNTER → 2025-02-01 | Outpatient (REF) | payer OTHER ==
[2025-02-01 17:26] LABS: BASO % 0.5 % (0.0-1.0); EOS # 0.1 10^3/uL (0.0-0.5); EOS % 1.5 % (0.0-3.0); HEMATOCRIT 36.6 % (36.0-47.0); LYMPH # 1.7 10^3/uL (1.5-5.0); LYMPH % 42.1 % (24.0-44.0); MEAN CORPUSCULAR HEMOGLOBIN 29.3 pg (27.0-33.0); MEAN CORPUSCULAR HGB CONC 32.8 g/dl (32.0-36.5); MEAN CORPUSCULAR VOLUME 89.3 fl (80.0-96.0); MONO # 0.4 10^3/uL (0.0-0.8); MONO % 10.3 % (2.0-8.0); NEUTROPHILS # 1.8 10^3/uL (1.5-8.5); NEUTROPHILS % 45.6 % (36.0-66.0); PLATELET COUNT, AUTOMATED 201 10^3/uL (150-450)
[2025-02-01 17:30] LABS: ERYTHROCYTE SEDIMENTATION RATE 3 mm/hr (0-20)
[2025-02-01 17:50] LABS: C REACTIVE PROTEIN QUANTITATIV < 0.50 MG/DL (<1.0)
[2025-02-01 17:51] LABS: ALBUMIN 3.8 G/DL (3.2-5.2); ALKALINE PHOSPHATASE 54 U/L (35-104); ALT/SGPT 13 U/L (7.0-40); AST/SGOT 13 U/L (<34); BILIRUBIN,TOTAL 0.5 MG/DL (0.3-1.2); BLOOD UREA NITROGEN 14 MG/DL (9-23); CALCIUM LEVEL 9.3 MG/DL (8.5-10.1); CARBON DIOXIDE LEVEL 26 MMOL/L (20-31); CHLORIDE LEVEL 109 MMOL/L (98-107); CREATININE FOR GFR 0.68 MG/DL (0.55-1.30); GLOMERULAR FILTRATION RATE > 90.0 (>60); GLUCOSE, FASTING 74 MG/DL (60-100); POTASSIUM SERUM 4.2 MMOL/L (3.5-5.1); SODIUM LEVEL 141 MMOL/L (136-145); TOTAL PROTEIN 6.3 G/DL (5.7-8.2)
[2025-02-01 17:53] LABS: FREE T4 1.16 NG/DL (0.89-1.76); THYROID STIMULATING HORMONE 1.707 uIU/ML (0.55-4.78)
[2025-02-01 18:18] LABS: HIV 1&2 SCREEN NEGATIVE (NEGATIVE)
[2025-02-01 18:26] LABS: HEPATITIS C VIRUS ABY INDEX 0.15 INDEX (<0.8)
== END ==
LOC: M SFHCADAM 11:43
PROVIDERS: ATTEND Physician Assistant
DX: G43.109 Migraine with aura, not intractable, without status migrainosus (principal); R63.4 Abnormal weight loss

== ENCOUNTER → 2025-02-06 | Outpatient (CLI) | payer OTHER | LOC: M SOG 08:21 | PROVIDERS: ATTEND Orthopaedic Surgery | DX: M79.641 Pain in right hand (principal) ==

== ENCOUNTER → 2025-02-08 | Outpatient (REF) | payer OTHER, MEDICAID | LOC: M SFHCADAM 14:40 | PROVIDERS: ATTEND Physician Assistant | DX: G43.109 Migraine with aura, not intractable, without status migrainosus (principal); R63.4 Abnormal weight loss ==

== ENCOUNTER → 2025-06-06 | Outpatient (CLI) | payer OTHER ==
[~2025-06-06] MED LIST changes: -ACE65ERTAB PO; +ACET-1593 PO
[2025-06-06 17:43] LABS: BASO # 0.0 10^3/uL (0.0-0.2); BASO % 0.5 % (0.0-1.0); EOS # 0.1 10^3/uL (0.0-0.5); EOS % 1.9 % (0.0-3.0); LYMPH # 1.9 10^3/uL (1.5-5.0); LYMPH % 33.3 % (24.0-44.0); MONO # 0.5 10^3/uL (0.0-0.8); MONO % 8.1 % (2.0-8.0); NEUTROPHILS # 3.2 10^3/uL (1.5-8.5); NEUTROPHILS % 56.0 % (36.0-66.0); PLATELET COUNT, AUTOMATED 203 10^3/uL (150-450)
[2025-06-06 17:54] LABS: ERYTHROCYTE SEDIMENTATION RATE 4 mm/hr (0-20)
[2025-06-06 18:12] LABS: C REACTIVE PROTEIN QUANTITATIV < 0.50 MG/DL (<1.0); CPK CREATINE PHOSPHOKINASE 43 U/L (34-145)
[2025-06-06 18:13] LABS: ALT/SGPT 13 U/L (7.0-40); AST/SGOT 13 U/L (<34); CALCIUM LEVEL 9.1 MG/DL (8.5-10.1); CARBON DIOXIDE LEVEL 28 MMOL/L (20-31); CHLORIDE LEVEL 108 MMOL/L (98-107); CREATININE FOR GFR 0.66 MG/DL (0.55-1.30); GLOMERULAR FILTRATION RATE > 90.0 (>60); POTASSIUM SERUM 3.9 MMOL/L (3.5-5.1); RHEUMATOID FACTOR QUANT < 3.5 IU/ML (<14); SODIUM LEVEL 144 MMOL/L (136-145)
[2025-06-06 18:14] LABS: FREE T4 1.10 NG/DL (0.89-1.76)
[2025-06-08 09:47] LABS: PROTEIN, TOTAL SO 6.2 g/dL (6.1-8.1)
[2025-06-12 08:06] LABS: ALBUMIN SO 4.0 g/dL (3.8-4.8); ALPHA 1 GLOBULINS SO 0.2 g/dL (0.2-0.3); ALPHA 2 GLOBULINS SO 0.6 g/dL (0.5-0.9); BETA 2 GLOBULIN SO 0.3 g/dL (0.2-0.5); BETA GLOBULIN SO 0.3 g/dL (0.4-0.6); GAMMA GLOBULINS SO 0.8 g/dL (0.8-1.7)
[2025-06-13 16:58] LABS: HLA-B27 Negative (Negative)
[2025-06-14 03:33] LABS: IMMUNOGLOBULIN A CELIAC 191 mg/dL (47-310); t-TRANSGLUTAMINASE(tTG) IgA < 1.0 U/mL (<15.0); t-TRANSGLUTAMINASE(tTG) IgG < 1.0 U/mL (<15.0)
== END ==
LOC: M PLALAB 16:31
PROVIDERS: ATTEND Physician Assistant
DX: M25.50 Pain in unspecified joint (principal); R63.4 Abnormal weight loss; R21 Rash and other nonspecific skin eruption; R53.82 Chronic fatigue, unspecified